=== PATIENT | female | born 1960 | race Caucasian/White ===

== ENCOUNTER 2021-05-23 16:23 | Emergency (ER) | payer BC, SELFPAY ==
--- NOTE | ~2021-05-23 | CT_ITS ---
EXAMINATION: CT ANGIOGRAM OF THE CHEST WITH AND WITHOUT CONTRAST (CT PULMONARY ANGIOGRAM FOR PE) CLINICAL INFORMATION: Reason for Exam r/o PE COMPARISON: None TECHNIQUE: Prior to contrast administration, noncontrast localization images were obtained. Subsequently, multidetector volumetric imaging was performed from the thoracic inlet to below the diaphragms following the administration of 57 mL Omnipaque 350 intravenous contrast. No contrast reaction reported Sagittal, coronal, and MIP oblique sagittal reformatted images were obtained on the CT workstation, uploaded to PACS, and reviewed. This CT examination was performed using dose optimization techniques as appropriate, variously including the following: *Automated exposure control *Adjustment of mA and/or kV according to patient size (this includes techniques or standardized protocols for targeted exams where dose is matched to indication/reason for exam; i.e. extremities or head) *Use of iterative reconstruction technique Total exam dose-length product 204 mGy-cm FINDINGS: QUALITY OF STUDY/CONTRAST BOLUS: Satisfactory. PULMONARY ARTERIES: No central or segmental pulmonary emboli. THORACIC AORTA: No aneurysm or dissection. LUNG: Dependent mosaic groundglass changes are present. Some are peripheral bullous formation present suggestive of underlying emphysema. No suspicious lung masses are seen. PLEURA: No pleural effusion or pneumothorax. MEDIASTINUM: Heart size upper limits normal. No pericardial effusion. No hilar or mediastinal lymphadenopathy. No evidence of septal bowing or right heart strain. CHEST WALL/AXILLA: No axillary or internal mammary lymphadenopathy. OSSEOUS STRUCTURES: No acute or suspicious osseous abnormality. UPPER ABDOMEN: Unremarkable. No reflux of contrast into the hepatic veins to suggest elevated right heart pressures. CT/CT angio chest PE protocol IMPRESSION: No evidence of pulmonary emboli Dependent mosaic groundglass change and some findings suggestive of underlying emphysema. VTE: negative
--- NOTE | ~2021-05-23 | XR_ITS ---
EXAMINATION: XR CHEST CLINICAL INFORMATION: Chest pain COMPARISON: 08/30/2010 TECHNIQUE: Frontal view of the chest was obtained. FINDINGS: No significant abnormality is noted involving the heart, lungs, mediastinum, bony thorax or soft tissues. XR/XR chest 1V IMPRESSION: Unremarkable examination.
[2021-05-23 16:34] VITALS: BMI 26.5
--- NOTE | 2021-05-23 16:35 | ECG_ITS ---
Test Reason : CHEST PAIN Blood Pressure : / mmHG Vent. Rate : 063 BPM Atrial Rate : 063 BPM P-R Int : 140 ms QRS Dur : 136 ms QT Int : 472 ms P-R-T Axes : 057 -02 030 degrees QTc Int : 483 ms Normal sinus rhythm Possible Left atrial enlargement Right bundle branch block Abnormal ECG When compared with ECG of 15-OCT-2008 13:10, Right bundle branch block has replaced Incomplete right bundle branch block Referred By: Generic ED Physician Electronically Signed By:BALDEV WHITEHEAD
[2021-05-23 18:56] VITALS: BP 155/67; PULSE 57; RESP 16; TEMP 36.6; O2SAT 99; BMI 26.5
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
[2021-05-23 19:25] LABS: Basophils Percent Auto 0.2 % (0-2); Eosinophils Absolute Auto 0.2 X10*3/uL (0.0-0.4); Eosinophils Percent Auto 2.5 % (0-4); Hematocrit 41.8 % (37-47); Hemoglobin 13.7 g/dl (12.0-16.0); Imm Gran Abs Auto 0.02 X10*3/uL (0.00-0.03); Imm Gran Pct Auto 0.3 % (0.0-0.4); Lymphocytes Absolute Auto 1.8 X10*3/uL (1.2-4.9); Lymphocytes Percent Auto 28.9 % (20-40); MANUAL DIFF FLAG NO; Mean Corpuscular HGB Conc 32.8 g/dl (31.0-35.0); Mean Corpuscular Hemoglobin 29.5 pg (27.0-33.0); Mean Corpuscular Volume 90.1 fL (80-98); Monocytes Absolute Auto 0.4 X10*3/uL (0.1-1.2); Monocytes Percent Auto 6.8 % (2-11); Neutrophils Absolute Auto 3.9 X10*3/uL (2.0-8.3); Neutrophils Percent Auto 61.3 % (45-73); Platelet Count 191 X10*3/uL (160-400); Red Blood Count 4.64 X10*6/uL (4.20-5.50); Red Cell Distribution Width 12.8 % (11.0-16.0); White Blood Count 6.3 X10*3/uL (4.8-10.8)
[2021-05-23 19:31] LABS: INTERNATIONAL NORM RATIO 0.9 (0.9-1.1); Prothrombin Time 10.7 SEC (9.9-13.0)
[2021-05-23 19:34] LABS: Partial Thromboplastin Time 41.4 SEC (24.1-38.0)
[2021-05-23 19:46] LABS: Anion Gap 12 (12-20); Blood Urea Nitrogen 16 mg/dL (9-16); Calcium 9.3 mg/dL (8.4-10.2); Carbon Dioxide 26 mmol/L (22-29); Chloride 109 mmol/L (96-108); Creatinine Clr Calc Pharmacy 60.9; Estimated Glomerular Filt Rate > 60; Glucose Random 94 mg/dL (60-115); Potassium 3.7 mmol/L (3.3-5.1); Sodium 143 mmol/L (135-145)
[2021-05-23 19:51] LABS: B Type Natriuretic Peptide 17 pg/mL (<100); Troponin-I High Sensitivity < 3.5 ng/L (<3.5-17.0)
--- NOTE | 2021-05-23 21:34 | ED_ITS ---
HPI - Chest Pain General Chief Complaint: Chest Pain Stated Complaint: cp Time Seen by Provider: 05/23/21 17:33 Source: patient Mode of arrival: ambulatory Limitations: no limitations Related Data Allergies Allergy/AdvReac Type Severity Reaction Status Date / Time No Known Allergies Allergy Verified 05/23/21 19:00 [No Known Allergies*] FOR[facility]LY [facility] Past Medical History Medical History (Updated 05/23/21 @ 18:59 by Fern Thomson RN) Major depression Social History Social History Advance Directives: No Advance Directives Information Provided: Yes Physical Exam Vital Signs: Vital Signs: Last Vital Signs Temp 97.9 F 05/23/21 18:56 Pulse 57 05/23/21 18:56 Resp 16 05/23/21 18:56 BP 155/67 H 05/23/21 18:56 Pulse Ox 99 05/23/21 18:56 Body Mass Index 26.5 MDM - Chest Pain Medical Records Data Attestation: I reviewed the patient's medical records. Lab Data Attestation: I reviewed the patient's lab results. Result diagrams: 05/23/21 19:18 05/23/21 19:18 Labs: Lab Results 05/23/21 05/23/21 05/23/21 Range/Units 19:18 19:18 19:18 WBC 6.3 (4.8-10.8) X10*3/uL RBC 4.64 (4.20-5.50) X10*6/uL Hgb 13.7 (12.0-16.0) g/dl Hct 41.8 (37-47) % MCV 90.1 (80-98) fL MCH 29.5 (27.0-33.0) pg MCHC 32.8 (31.0-35.0) g/dl RDW 12.8 (11.0-16.0) % Plt Count 191 (160-400) X10*3/uL MPV 10.0 (9.4-12.3) fL Immature Gran % (Auto) 0.3 (0.0-0.4) % Neut % (Auto) 61.3 (45-73) % Lymph % (Auto) 28.9 (20-40) % [place] % (Auto) 6.8 (2-11) % Eos % (Auto) 2.5 (0-4) % Baso % (Auto) 0.2 (0-2) % Lymph # (Auto) 1.8 (1.2-4.9) X10*3/uL [place] # (Auto) 0.4 (0.1-1.2) X10*3/uL Eos # (Auto) 0.2 (0.0-0.4) X10*3/uL Baso # (Auto) 0.0 (0.0-0.2) X10*3/uL Abs Immat Gran (auto) 0.02 (0.00-0.03) X10*3/uL Absolute Neuts (auto) 3.9 (2.0-8.3) X10*3/uL Absolute Nucleated RBC 0.000 (0.0-0.012) X10*3/uL Nucleated RBC % (auto) 0.0 (0.0-0.2) /100WBC PT 10.7 (9.9-13.0) SEC INR 0.9 (0.9-1.1) APTT 41.4 H (24.1-38.0) SEC Sodium 143 (135-145) mmol/L Potassium 3.7 (3.3-5.1) mmol/L Chloride 109 H (96-108) mmol/L Carbon Dioxide 26 (22-29) mmol/L Anion Gap 12 (12-20) BUN 16 (9-16) mg/dL Creatinine 0.84 (0.5-1.4) mg/dL Estim Creat Clear Calc 60.9 Estimated GFR > 60 Random Glucose 94 (60-115) mg/dL Calcium 9.3 (8.4-10.2) mg/dL Troponin I High Sens (<3.5-17.0) ng/L B-Natriuretic Peptide (<100) pg/mL 05/23/21 Range/Units 19:18 WBC (4.8-10.8) X10*3/uL RBC (4.20-5.50) X10*6/uL Hgb (12.0-16.0) g/dl Hct (37-47) % MCV (80-98) fL MCH (27.0-33.0) pg MCHC (31.0-35.0) g/dl RDW (11.0-16.0) % Plt Count (160-400) X10*3/uL MPV (9.4-12.3) fL Immature Gran % (Auto) (0.0-0.4) % Neut % (Auto) (45-73) % Lymph % (Auto) (20-40) % [place] % (Auto) (2-11) % Eos % (Auto) (0-4) % Baso % (Auto) (0-2) % Lymph # (Auto) (1.2-4.9) X10*3/uL [place] # (Auto) (0.1-1.2) X10*3/uL Eos # (Auto) (0.0-0.4) X10*3/uL Baso # (Auto) (0.0-0.2) X10*3/uL Abs Immat Gran (auto) (0.00-0.03) X10*3/uL Absolute Neuts (auto) (2.0-8.3) X10*3/uL Absolute Nucleated RBC (0.0-0.012) X10*3/uL Nucleated RBC % (auto) (0.0-0.2) /100WBC PT (9.9-13.0) SEC INR (0.9-1.1) APTT (24.1-38.0) SEC Sodium (135-145) mmol/L Potassium (3.3-5.1) mmol/L Chloride (96-108) mmol/L Carbon Dioxide (22-29) mmol/L Anion Gap (12-20) BUN (9-16) mg/dL Creatinine (0.5-1.4) mg/dL Estim Creat Clear Calc Estimated GFR Random Glucose (60-115) mg/dL Calcium (8.4-10.2) mg/dL Troponin I High Sens < 3.5 (<3.5-17.0) ng/L B-Natriuretic Peptide 17 (<100) pg/mL ECG Data ECG #1: Attestation: I personally reviewed and interpreted this ECG as follows: Interpretation: Now in sinus rhythm heart rate 63 beats per minute tried bladder branch block no acute ST T wave changes no acute ischemia
[2021-05-23 21:46] LABS: D Dimer 388 NG/ML
[2021-05-23] MEDS: Aspirin 81 MG TAB.CHEW 162 MG PO (22:02)
[2021-05-23] MEDS: iohexoL 350 MG/ML 100 ML INFUS..BTL IV (22:47)
[2021-05-23 22:54] LABS: Troponin-I High Sensitivity < 3.5 ng/L (<3.5-17.0)
== END 2021-05-24 00:02 | disposition home or self-care (01) ==
PROVIDERS: Internal Medicine; Physician Assistant; Emergency Provider Emergency Medicine
DX: R07.89 Other chest pain (principal)
CPT/HCPCS: 36415; 71045; 71275; 80048; 83880; 84484; 85025; 85379; 85610; 85730; 93005; 99283; 99284; Q9967

== ENCOUNTER 2021-07-11 07:09 | Outpatient (REF) | payer BC, SELFPAY ==
[2021-07-11 11:55] LABS: Appearance Urine CLEAR; Color Urine YELLOW; Glucose Urine UA NEG (NEG); Leukocyte Esterase Urine 2+ (NEG); Nitrite Urine NEG (NEG); Urine Blood NEG (NEG); Urine Ketones NEG (NEG); Urine Protein NEG (NEG-TRACE)
[2021-07-11 12:11] LABS: Bacteria Urine 1+ /LPF; RBC Urine 0-2 /HPF (0); Renal Epithelial Cells Urine 1+ /LPF; Squamous Epithelial Cell Urine 2+ /LPF
[2021-07-11 16:07] LABS: Cholesterol 266 mg/dL; HDL Cholesterol 63 mg/dL; LDL Cholesterol Calculated 185 mg/dl; Triglycerides 93 mg/dL
[2021-07-11 16:27] LABS: TSH reflex Free T4 1.58 uIU/mL (0.32-4.0)
== END 2021-07-11 07:10 | disposition home or self-care (01) ==
LOC: HO.WFDLDS 07:09
PROVIDERS: Visit Provider Family Medicine
DX: Z00.00 Encounter for general adult medical examination without abnormal findings (principal)
CPT/HCPCS: 36415; 80061; 81001; 84443

== ENCOUNTER → 2021-07-26 07:58 | Outpatient (REF) | payer BC, SELFPAY ==
--- NOTE | 2021-07-26 08:03 | CA_ITS ---
Acquisition Time: 2021-07-26 07:56:50 Total Exercise Time: 00:07:35 Test Indications: Abnormal ECG Medications: FLUOXETINE LITHIUM Protocol: ARELIS Max HR: 134 BPM 85% of Pred: 157 BPM Max BP: 162/058 mmHG Max Work Load: 9.4 METS Exercise stress test with exercise 7 min 35 sec of Arelis protocol, with mild sob, no chest discomfort, with isolated PVC in recovery, with normotensive response to exercise, without EKG changes meeting criteria for ischemia, with ST/T wave abnormality V1- V2 consistent with RBBB. Test reviewed with Dr Bruno Referred By: Homer Quintero Overread By: JULIAN BOATENG
== END ==
LOC: HO.CARD 07:58
PROVIDERS: Visit Provider Family Medicine
DX: R07.89 Other chest pain (principal)
CPT/HCPCS: 93017

== ENCOUNTER 2021-08-20 07:54 | Outpatient (REF) | payer BC, SELFPAY ==
--- NOTE | ~2021-08-20 | MM_ITS ---
EXAMINATION: MM SCREENING DIGITAL BREAST TOMOSYNTHESIS, BILATERAL CLINICAL INFORMATION: Screening. Asymptomatic. The lifetime risk of breast cancer based on the Tyrer-Cuzick Model is 4%. COMPARISON: Mammography: 01/09/2017, 04/13/2015 TECHNIQUE: Digital breast tomosynthesis is performed in both the craniocaudal and mediolateral oblique views along with computer-aided detection (CAD). Synthesized 2D images are generated from the tomosynthesis. FINDINGS: There are scattered areas of fibroglandular density (ACR BI-RADS breast composition Category b). There are no significant masses, abnormal calcifications, or other abnormalities. There are a few new scattered punctate round and ductal secretory calcifications mid central inner right breast. The axilla and skin contours are unremarkable. MM/MM tomosynthesis screening BI IMPRESSION: No mammographic evidence of malignancy. ASSESSMENT: BI-RADS 2: Benign RECOMMENDATION: Routine annual mammography screening. This patient's information was entered into a reminder system with a target due date for their next mammogram.
== END 2021-08-20 07:55 | disposition home or self-care (01) ==
LOC: HO.MAMMO 07:54
PROVIDERS: Visit Provider Family Medicine
DX: Z12.31 Encounter for screening mammogram for malignant neoplasm of breast (principal)
CPT/HCPCS: 77063; 77067

== ENCOUNTER 2021-11-21 07:07 | Outpatient (REF) | payer BC, SELFPAY ==
[2021-11-21 11:22] LABS: Appearance Urine CLEAR; Color Urine YELLOW; Glucose Urine UA NEG (NEG); Leukocyte Esterase Urine 1+ (NEG); Nitrite Urine NEG (NEG); PH 6.5 (5.0-8.0); Urine Blood NEG (NEG); Urine Ketones NEG (NEG); Urine Protein NEG (NEG-TRACE)
[2021-11-21 11:34] LABS: Cholesterol 262 mg/dL; HDL Cholesterol 63 mg/dL; LDL Cholesterol Calculated 177 mg/dl; Triglycerides 112 mg/dL
[2021-11-21 12:13] LABS: Lithium < 0.10 mmol/L (0.60-1.20)
[2021-11-21 13:12] LABS: Squamous Epithelial Cell Urine 1+ /LPF
[2021-11-21 13:14] LABS: RBC Urine 0 /HPF (0)
== END 2021-11-21 07:08 | disposition home or self-care (01) ==
LOC: HO.WFDLDS 07:07
PROVIDERS: Visit Provider Family Medicine
DX: Z00.00 Encounter for general adult medical examination without abnormal findings (principal); F32.9 Major depressive disorder, single episode, unspecified; Z79.899 Other long term (current) drug therapy
CPT/HCPCS: 36415; 80061; 80178; 81001

== ENCOUNTER 2021-12-21 13:19 | Outpatient (REF) | payer BC, SELFPAY ==
[2021-12-21 14:07] LABS: Influenza A PCR NEGATIVE (Negative); Influenza B PCR NEGATIVE (Negative); Resp Syncy Virus RNA Qual PCR NEGATIVE (Negative); SARS COV2 PCR INHOUSE NEGATIVE (Negative)
== END 2021-12-21 13:20 | disposition home or self-care (01) ==
LOC: HO.LNP 13:19
PROVIDERS: Visit Provider Family Medicine
DX: Z20.822 Contact with and (suspected) exposure to COVID-19 (principal)
CPT/HCPCS: 0241U

== ENCOUNTER 2022-02-13 11:23 | Outpatient (REF) | payer BC, SELFPAY | END 2022-02-13 11:24 | disposition home or self-care (01) | LOC: HO.LNP 11:23 | PROVIDERS: Visit Provider Family Medicine | DX: Z20.822 Contact with and (suspected) exposure to COVID-19 (principal); B34.9 Viral infection, unspecified | CPT/HCPCS: U0003; U0005 ==

== ENCOUNTER 2022-02-16 11:19 | Outpatient (REF) | payer BC, SELFPAY ==
--- NOTE | ~2022-02-16 | XR_ITS ---
EXAMINATION: XR CHEST CLINICAL INFORMATION: Cough. COMPARISON: None TECHNIQUE: 2 views of the chest were obtained. FINDINGS: The lungs are well-expanded and clear of acute process. The heart size and pulmonary vascularity is normal. There is mild dextroscoliosis lumbar spine. Rest of the visualized bones are grossly unremarkable. XR/XR chest 2V IMPRESSION: Unremarkable chest exam. Mild dextro scoliosis mid to lower dorsal spine.
[2022-02-16 14:41] LABS: Influenza A PCR NEGATIVE (Negative); Influenza B PCR NEGATIVE (Negative); Resp Syncy Virus RNA Qual PCR NEGATIVE (Negative); SARS COV2 PCR INHOUSE NEGATIVE (Negative)
== END 2022-02-16 11:20 | disposition home or self-care (01) ==
LOC: HO.XRAY 11:19
PROVIDERS: PCP Family Medicine; Visit Provider Family Medicine
DX: Z20.822 Contact with and (suspected) exposure to COVID-19 (principal); R05.9 Cough, unspecified
CPT/HCPCS: 0241U; 71046

== ENCOUNTER 2022-07-21 10:22 | Outpatient (REF) | payer BC, SELFPAY ==
[2022-07-21 16:48] LABS: Influenza A PCR NEGATIVE (Negative); Influenza B PCR NEGATIVE (Negative); Resp Syncy Virus RNA Qual PCR NEGATIVE (Negative); SARS COV2 PCR INHOUSE POSITIVE (Negative)
== END 2022-07-21 10:23 | disposition home or self-care (01) ==
LOC: HO.LAB 10:22
PROVIDERS: Visit Provider Nurse Practitioner Family
DX: R05.9 Cough, unspecified (principal); J39.9 Disease of upper respiratory tract, unspecified; Z20.822 Contact with and (suspected) exposure to COVID-19
CPT/HCPCS: 0241U; U0003; U0005

== ENCOUNTER 2022-09-02 07:59 | Outpatient (REF) | payer BC, SELFPAY ==
--- NOTE | ~2022-09-02 | MM_ITS ---
EXAMINATION: MM SCREENING DIGITAL BREAST TOMOSYNTHESIS, BILATERAL CLINICAL INFORMATION: Screening. Asymptomatic. The lifetime risk of breast cancer based on the Tyrer-Cuzick Model is 3%. COMPARISON: Mammography: 08/20/2021, 01/09/2017 TECHNIQUE: Digital breast tomosynthesis is performed in both the craniocaudal and mediolateral oblique views along with computer-aided detection (CAD). Synthesized 2D images are generated from the tomosynthesis. FINDINGS: There are scattered areas of fibroglandular density (ACR BI-RADS breast composition Category b). There are no significant masses, abnormal calcifications, or other abnormalities. Parenchymal pattern is similar to prior studies. There is no developing density or architectural abnormality. The axilla and skin contours are unremarkable. No significant changes. MM/MM tomosynthesis screening BI IMPRESSION: No mammographic evidence of malignancy. ASSESSMENT: BI-RADS 1: Negative RECOMMENDATION: Routine annual mammography screening. This patient's information was entered into a reminder system with a target due date for their next mammogram.
== END 2022-09-02 08:00 | disposition home or self-care (01) ==
LOC: HO.MAMMO 07:59
PROVIDERS: PCP Family Medicine; Visit Provider Family Medicine
DX: Z12.31 Encounter for screening mammogram for malignant neoplasm of breast (principal)
CPT/HCPCS: 77063; 77067

== ENCOUNTER 2022-10-03 10:27 | Outpatient (REF) | payer BC, SELFPAY ==
--- NOTE | ~2022-10-03 | US_ITS ---
EXAMINATION: US EXTRACRANIAL CAROTID DUPLEX, BILATERAL CLINICAL INFORMATION: Carotid stenosis COMPARISON: None TECHNIQUE: Real-time ultrasound and Doppler techniques (integrating B-mode 2-D vascular images, Doppler spectral analysis and color-flow Doppler imaging) were utilized to interrogate the extracranial carotid arteries, the vertebral arteries and proximal subclavian arteries bilaterally. The degree of stenosis is determined by criteria similar to NASCET. FINDINGS: Right Side: 1. There is mild atherosclerotic plaque seen in the bifurcation/proximal ICA region. 2. The common carotid artery PSV proximally is 77 cm/s and distally 71.4 cm/s. 3. The proximal internal carotid artery velocities are 72.4 cm/s systolic and 22.5 cm/s diastolic. 4. The proximal external carotid artery PSV is 113 cm/s. 5. The vertebral artery shows antegrade flow. 6. The subclavian artery waveforms are normal. Left Side: 1. There is no significant atherosclerotic plaque seen in the bifurcation/proximal ICA region. 2. The common carotid artery PSV proximally is 120 cm/s and distally 93.8 cm/s. 3. The proximal internal carotid artery velocities are 72.2 cm/s systolic and 22.1 cm/s diastolic. 4. The proximal external carotid artery PSV is 119 cm/s. 5. The vertebral artery shows antegrade flow. 6. The subclavian artery waveforms are normal. US/US carotid duplex BI IMPRESSION: 1. RIGHT: Minimal, non-hemodynamically significant stenosis of the proximal right internal carotid artery corresponding to a 0-49% stenosis by velocity criteria. 2. LEFT: Normal left internal carotid artery without atherosclerotic plaque or hemodynamically significant stenosis.
== END 2022-10-03 10:28 | disposition home or self-care (01) ==
LOC: HO.US 10:27
PROVIDERS: PCP Family Medicine; Visit Provider Family Medicine
DX: R09.89 Other specified symptoms and signs involving the circulatory and respiratory systems (principal)
CPT/HCPCS: 93880

== ENCOUNTER 2022-10-17 12:08 | Outpatient (REF) | payer BC, SELFPAY ==
[2022-10-17 14:01] LABS: MANUAL DIFF FLAG NO
[2022-10-17 14:12] LABS: Basophils Percent Auto 0.8 % (0-2); Eosinophils Absolute Auto 0.1 X10*3/uL (0.0-0.4); Eosinophils Percent Auto 1.8 % (0-4); Hematocrit 41.1 % (37.0-47.0); Hemoglobin 13.4 g/dl (12.0-16.0); Imm Gran Abs Auto 0.01 X10*3/uL (0.00-0.03); Imm Gran Pct Auto 0.2 % (0.0-0.4); Lymphocytes Absolute Auto 1.3 X10*3/uL (1.2-4.9); Lymphocytes Percent Auto 25.9 % (20-40); Mean Corpuscular HGB Conc 32.6 g/dl (31.0-35.0); Mean Corpuscular Hemoglobin 29.3 pg (27.0-33.0); Mean Corpuscular Volume 89.7 fL (80.0-98.0); Mean Platelet Volume 10.2 fL (9.4-12.3); Monocytes Absolute Auto 0.4 X10*3/uL (0.1-1.2); Monocytes Percent Auto 7.6 % (2-11); Neutrophils Absolute Auto 3.2 x10*3/uL (2.0-8.3); Neutrophils Percent Auto 63.7 % (45-73); Platelet Count 249 X10*3/uL (160-400); Red Blood Count 4.58 X10*6/uL (4.20-5.50); Red Cell Distribution Width 12.8 % (11.0-16.0)
[2022-10-17 14:13] LABS: Appearance Urine Clear; Color Urine Yellow; Glucose Urine UA Negative (Negative); Leukocyte Esterase Urine Negative (Negative); Nitrite Urine Negative (Negative); Urine Blood Negative (Negative); Urine Ketones Negative (Negative); Urine Protein Negative (Neg-Trace)
[2022-10-17 15:18] LABS: Alanine Aminotransferase 14 U/L (0-31); Albumin Level 4.2 g/dL (3.5-5.0); Alkaline Phosphatase 67 U/L (39-117); Anion Gap 12 (12-20); Aspartate Amino Transferase 13 U/L (5-31); Bilirubin Total 0.5 mg/dL (0.0-1.0); Blood Urea Nitrogen 21 mg/dL (9-16); Calcium 8.9 mg/dL (8.4-10.2); Carbon Dioxide 26 mmol/L (22-29); Chloride 108 mmol/L (96-108); Cholesterol 261 mg/dL; Estimated Glomerular Filt Rate > 60; Glucose Fasting 95 mg/dL (60-99); HDL Cholesterol 70 mg/dL; LDL Cholesterol Calculated 174 mg/dl; Potassium 4.4 mmol/L (3.3-5.1); Sodium 142 mmol/L (135-145); Total Protein 6.7 g/dL (6.5-8.0); Triglycerides 85 mg/dL
[2022-10-17 15:33] LABS: Creatinine Urine 120.38 mg/dL; Microalbum/Creatinine Ratio Ur 4.9 ug/mg cr; TSH reflex Free T4 1.73 uIU/mL (0.32-4.0)
== END 2022-10-17 12:09 | disposition home or self-care (01) ==
LOC: HO.WFDLDS 12:08
PROVIDERS: Visit Provider Family Medicine
DX: Z00.00 Encounter for general adult medical examination without abnormal findings (principal); I10 Essential (primary) hypertension; Z13.220 Encounter for screening for lipoid disorders; Z13.29 Encounter for screening for other suspected endocrine disorder
CPT/HCPCS: 36415; 80053; 80061; 81003; 82043; 84443; 85025

== ENCOUNTER 2023-09-08 07:59 | Outpatient (REF) | payer BC, SELFPAY | END 2023-09-08 08:00 | disposition home or self-care (01) | LOC: HO.MAMMO 07:59 | PROVIDERS: PCP Family Medicine; Visit Provider Family Medicine | DX: Z12.31 Encounter for screening mammogram for malignant neoplasm of breast (principal) | CPT/HCPCS: 77063; 77067 ==

== ENCOUNTER → 2023-09-08 08:00 | Outpatient (BNV) | payer BC, SELFPAY | PROVIDERS: PCP Family Medicine; Visit Provider Radiology Diagnostic Radiology | DX: Z12.31 Encounter for screening mammogram for malignant neoplasm of breast (principal) | CPT/HCPCS: 77063; 77067 ==

== ENCOUNTER 2024-02-22 10:52 | Outpatient (AMB) | payer BC, SELFPAY ==
[2024-02-22 10:58] VITALS: BP 122/72; PULSE 69; O2SAT 97; BMI 27.6
--- NOTE | 2024-02-22 10:58 | A.OFFPC_ITS ---
Vital Signs 02/22/24 10:58 Height 5 ft 2 in Weight 151 lb 2 oz BMI 27.6 BP 122/72 Blood Pressure Location Lt brachial Position Sitting Pulse 69 Pulse Source Pulse Oximeter Pulse Oximetry (%) 97 Oxygen Delivery Method Room Air Intake Visit Reasons: [place] Paperwork Intake Note: Patient is here with total exhaustion, crying, tired, and wiped out. Patient would like a [place] refill today, and Fluoxetine 10 mg. Allergies No Known Allergies [No Known Allergies*] Allergy (Verified 02/22/24 11:02) Tobacco use date assessed: 02/22/24 Fall risk assessment: No Falls in past year Last assessed Fall Risk: 02/22/24 Dental Screening Dental Screen Date: 02/22/24 Did you have a dental visit in the last 12 months?: Yes Did you have a dental problem in the last 6 months where you did not have access to dental care?: No Was dental information given to patient?: Patient has dentist HPI FMMS Paperwork HPI Details 63 y/o female presents for [facility] mariahcassius gold PHQ-9 18, LAKESHA-7 18 today. She is prescribed luoxetine, lithium carbonate. She states she has not been on her lithium for her major depression and has not been taking it x1 year. Denies any bipolar disorder. Pt reports she has been working 60+ hours a week which has been causing her significant stress, fatigue. She states her work hours have been worsening her anxiety/depression. [facility] Medical History Major depression Surgical History No pertinent past surgical history Social History Housing: Apartment Patient Tobacco Use Status: Never used Tobacco e-Cigarette/Vaping Use: Never Used Second Hand Smoke Exposure: No service: No Current occupational status: employed Current occupational exposures/hazards: No Cognitive needs: No Hearing needs: No Vision needs: No Questionnaire PHQ-9 Over the last 2 weeks, how often have you been bothered by any of the following problems? 1. Little interest or pleasure in doing things: nearly every day 2. Feeling down, depressed, or hopeless: not at all 3. Trouble falling or staying asleep, or sleeping too much: nearly every day 4. Feeling tired or having little energy: nearly every day 5. Poor appetite or overeating: nearly every day 6. Feeling bad about yourself - or that you are a failure or have let yourself or your family down: nearly every day 7. Trouble concentrating on things, such as reading the newspaper or watching television: nearly every day 8. Moving or speaking so slowly that other people could have noticed. Or the opposite - being so fidgety or restless that you have been moving around a lot more than usual: not at all 9. Thoughts that you would be better off or of hurting yourself in some way: not at all Total score: 18 Depression Screening Interpretation: Positive Depression Screening Done: Yes 24753 - PHQ-9 Billing: Yes Source: Developed by Drs. Rosalio Evans, Koki Hassan, Jg Guerra and colleagues, with an educational shweta from [employer]. Thrive Questionnaire Date Thrive assessed: 02/22/24 I am a: Patient What is your living situation today?: I have a steady place to live Within the past 12 months, did the food you bought not last and you didn't have the money to get more?: Never true Within the past 12 months, did you worry whether your food would run out before you got money to buy more?: Never true Do you have trouble paying for medicines?: No Do you have trouble getting transportation to medical appointments?: No Do you have trouble paying your heating and electricity bill?: No Do you have trouble taking care of your child, family member or friend?: No Do you have trouble with day-to-day activities such as bathing, preparing meals, shopping, managing finances, etc.?: No Are you currently unemployed and looking for a job?: No Are you interested in more education?: No THRIVE Score: 0 AUDIT C Alcohol Use Questionnaire (AUDIT-C) 1. How often do you have a drink containing alcohol?: 2-4 times a month 2. How many drinks containing alcohol do you have on a typical day when you are drinking?: 1 or 2 3. How often do you have six or more drinks on one occasion?: Never Total Score: 2 LAKESHA-7 AMB Questionnaire LAKESHA-7 Date LAKESHA - 7 assessed: 02/22/24 Feeling nervous, anxious, or on edge: 3 = Nearly every day Not being able to stop or control worryin = Nearly every day Worrying too much about different things: 3 = Nearly every day Trouble relaxin = Nearly every day Being so restless that it is hard to sit still: 3 = Nearly every day Becoming easily annoyed or irritable: 3 = Nearly every day Feeling afraid as if something awful might happen: 0 = Not at all Total LAKESHA-7 score (0-4 normal; 5-9 mild; 10-14 moderate; 15-21 severe): 18 Source: Developed by Drs. Rosalio Evans, Koki Hassan, Jg Guerar and colleagues, with an educational shweta from [employer]. LAKESHA-7 Assessment Billing LAKESHA-7 Assessment Tool: LAKESHA-7 Assessment 61195 Review of Systems Const Denies chills, Reports fatigue, Denies fever(s), Denies headache(s) and Denies weakness ENT Denies dizziness and Denies headache(s) Card Denies dyspnea Resp Denies cough, Denies dyspnea, Denies wheezing and Denies other (shortness of breath) Musc Denies numbness and Denies tingling Neuro Denies dizziness, Denies headache(s), Denies numbness, Denies tingling and Denies weakness Psych Reports anxiety and Reports depression Endo Reports fatigue Aller/Immun Denies wheezing Physical exam (Primary Care) Vital Signs: Last Vital Signs Pulse 69 02/22/24 10:58 BP 122/72 02/22/24 10:58 Pulse Ox 97 02/22/24 10:58 Oxygen Delivery Method Room Air 02/22/24 10:58 BMI result Body Mass Index 27.6 Tobacco/Smoking Status: Tobacco use Status Tobacco use date assessed 02/22/24 02/22/24 11:08 Patient Tobacco Use Status Never used Tobacco 02/22/24 11:08 e-Cigarette/Vaping Use Never Used 02/22/24 11:08 PHQ-9: PHQ-9 Score PHQ-9: Total score 18 02/22/24 11:36 Depression Screening Interpretation: Positive Thrive Assessment: Date of Thrive Assessment Date Thrive assessed 02/22/24 02/22/24 11:16 Const General: well developed; No acute distress Nutritional Appearance: well nourished Orientation/consciousness: patient oriented x3 [facility] Head: Yes normocephalic and Yes atraumatic Eyes General: appearance normal, both eyes and all related structures Pupils: Equal, round and reactive pupils present EOM: EOMs intact bilaterally Resp Effort & Inspection: normal respiratory effort Auscultation: clear to auscultation bilaterally Cardio Rate: regular rate Rhythm: regular rhythm Heart sounds: S1 normal heart sound present, S2 normal heart sound present, no gallops, no murmurs and no rubs Neuro General: patient oriented x3 and gait normal Cranial nerves: Yes Equal, round and reactive pupils present Psych Affect: normal affect Assessment and Plan Assessment & Plan (1) Major depression: Code(s): F32.9 - Major depressive disorder, single episode, unspecified Plan: Major?depression?for?which?pat ient?has?had?Psychiatry?and?has?been?on?high?doses?of?fluoxetine?and?lithium.??S he?denies?a?diagnosis?of?bipolar?disorder. She?has?been?on?fluoxetine?but?has?not?been?on?the?lithium?which?she?says?was ?also?helpful. Will?continue?her?regimen?and?will?add?some?bupropion?which?may?also?help?with?h er?anxiety?which?seems?to?be?exacerbated?due?to?work?at?present. Severe?fatigue?and?avoiding?behavior?at?work Advised?patient?that?she?needs?therapist?and?psychiatrist?as?well?and?she?agrees .??Will?ask?the?nurse?navigator?to?help?her?with?this Severe?symptoms?at?work?and?I?am?keeping?her?out?for?the?n ext?2?months?for?her?mental?health?and?to?ensure?she?is?connected?with?a?therapi st?and?a?psychiatrist.??Will?follow-up?in?2?weeks?to?review?her?labs?and?see?how ?her?medications?are?working.??Close?follow- up?thereafter?and?will?fill?out?FMLA?paperwork?at?her?next?visit. (2) Depression with anxiety: Code(s): F41.8 - Other specified anxiety disorders Plan: As?above,?patient?seems?to?have?anxiety?as?well?as?depression?and?may?benefit?fr om?an?adjunct?medication?such?as?bupropion?along?with ?her?fluoxetine?and?lithium. (3) Fatigue: Code(s): R53.83 - Other fatigue Plan: May?be?se condary?to?worsened?anxiety?and?depression.??However,?this?may?be?symptoms?sleep ?apnea?as?patient?has?severe?daytime?fatigue?and?also?awakens?frequently?through out?the?night. Referred?to?Sleep?Medicine Checking?labs Orders: Orders Comprehensive [place]. Panel Fast Today Z00.00 - Encounter for general adult medical examination without abnormal findings Complete Blood Count Auto Diff Today Z00.00 - Encounter for general adult medical examination without abnormal findings Vitamin D 25-OH Total Today E55.9 - Vitamin D deficiency, unspecified Lipid Panel Today Z00.00 - Encounter for general adult medical examination without abnormal findings Microalbumin, Random (w Creat) Today I10 - Essential (primary) hypertension TSH reflex Free T4 Today Z00.00 - Encounter for general adult medical examination without abnormal findings UA and rflx microscopic Today Z00.00 - Encounter for general adult medical examination without abnormal findings Vitamin B12 and Folate Today E53.8 - Deficiency of other specified B group vitamins [place] Today F41.8 - Other specified anxiety disorders Referrals Nurse Navigator Referral F41.8 - Other specified anxiety disorders Sleep Medicine Referral G47.10 - Hypersomnia, unspecified, R53.83 - Other fatigue Medications: New bupropion HCl 75 mg PO BID 30 days 60 tabs 1RF Refilled lithium carbonate Covering script for psychiatrist. 300 mg PO BID 90 days 180 tabs 1RF fluoxetine Covering script for psychiatrist. Total daily dose is 90 mg. 10 mg PO DAILY 90 days 90 caps 1RF Coding Level of Care Code Est Pt Level 3 (10658) Diagnoses Major depression F32.9 Depression with anxiety F41.8 Fatigue R53.83 Additional Codes LAKESHA-7 Assessment Billing - LAKESHA-7 Assessment Tool: LAKESHA-7 Assessment 73134 ([id number])
== END 2024-02-22 11:50 | disposition home or self-care (01) ==
PROVIDERS: PCP Family Medicine; Visit Provider Family Medicine
DX: R53.83 Other fatigue (principal); F32.9 Major depressive disorder, single episode, unspecified; F41.8 Other specified anxiety disorders
CPT/HCPCS: 96127; 99214

== ENCOUNTER 2024-03-03 07:43 | Outpatient (REF) | payer BC, SELFPAY ==
[2024-03-03 11:13] LABS: MANUAL DIFF FLAG NO
[2024-03-03 11:44] LABS: Basophils Percent Auto 0.5 % (0-2); Eosinophils Absolute Auto 0.1 X10*3/uL (0.0-0.4); Eosinophils Percent Auto 3.6 % (0-4); Hematocrit 40.9 % (37.0-47.0); Hemoglobin 13.3 g/dl (12.0-16.0); Imm Gran Abs Auto 0.01 X10*3/uL (0.00-0.03); Imm Gran Pct Auto 0.3 % (0.0-0.4); Lymphocytes Percent Auto 27.1 % (20-40); Mean Corpuscular HGB Conc 32.5 g/dl (31.0-35.0); Mean Corpuscular Hemoglobin 29.6 pg (27.0-33.0); Mean Corpuscular Volume 90.9 fL (80.0-98.0); Mean Platelet Volume 10.6 fL (9.4-12.3); Monocytes Absolute Auto 0.3 X10*3/uL (0.1-1.2); Monocytes Percent Auto 7.6 % (2-11); Neutrophils Absolute Auto 2.3 x10*3/uL (2.0-8.3); Neutrophils Percent Auto 60.9 % (45-73); Platelet Count 183 X10*3/uL (160-400); Red Cell Distribution Width 13.3 % (11.0-16.0); White Blood Count 3.8 X10*3/uL (4.8-10.8)
[2024-03-03 11:48] LABS: Appearance Urine Clear; Color Urine Yellow; Glucose Urine UA Negative (Negative); Leukocyte Esterase Urine Trace (Negative); Nitrite Urine Negative (Negative); Specific Gravity - Urine 1.015 (1.005-1.025); UMIC TRIGGER UA YES; Urine Blood Negative (Negative); Urine Ketones Negative (Negative); Urine Protein Negative (Neg-Trace)
[2024-03-03 11:56] LABS: Bacteria Urine None Seen (None Seen); Hyaline Casts Urine 0-2 /LPF (0-2); RBC Urine 0-2 /HPF (0-2); Squamous Epithelial Cell Urine 0-2 /HPF (0-2); WBC Urine 0-5 /HPF (0-5)
[2024-03-03 12:15] LABS: Lithium < 0.10 mmol/L (0.60-1.20)
[2024-03-03 12:17] LABS: Alanine Aminotransferase 13 U/L (0-31); Alkaline Phosphatase 69 U/L (39-117); Anion Gap 10 (12-20); Aspartate Amino Transferase 14 U/L (5-31); Bilirubin Total 0.4 mg/dL (0.0-1.0); Blood Urea Nitrogen 18 mg/dL (9-16); Calcium 8.9 mg/dL (8.4-10.2); Carbon Dioxide 27 mmol/L (22-29); Chloride 108 mmol/L (96-108); Cholesterol 196 mg/dL (<200); Estimated Glomerular Filt Rate > 60; Glucose Fasting 95 mg/dL (60-99); HDL Cholesterol 73 mg/dL (>40); LDL Cholesterol Calculated 111 mg/dL (<100); Potassium 4.2 mmol/L (3.3-5.1); Sodium 141 mmol/L (135-145); Total Protein 6.7 g/dL (6.5-8.0); Triglycerides 60 mg/dL (<150)
[2024-03-03 12:20] LABS: Creatinine Urine 66.32 mg/dL; Microalbumin Urine < 5.0 mg/L
[2024-03-03 12:38] LABS: TSH reflex Free T4 1.65 uIU/mL (0.32-4.0); Vitamin D 25-OH Total 28.2 ng/mL (>30)
[2024-03-03 12:39] LABS: Folate 9.6 ng/mL (> or = 4.0); Vitamin B12 260 pg/mL (200-900)
== END 2024-03-03 07:44 | disposition home or self-care (01) ==
LOC: HO.WFDLDS 07:43
PROVIDERS: Visit Provider Family Medicine
DX: Z00.00 Encounter for general adult medical examination without abnormal findings (principal); I10 Essential (primary) hypertension; E53.8 Deficiency of other specified B group vitamins; E55.9 Vitamin D deficiency, unspecified; F41.8 Other specified anxiety disorders
CPT/HCPCS: 36415; 80053; 80061; 80178; 81001; 82043; 82306; 82570; 82607; 82746; 84443; 85025

== ENCOUNTER 2024-03-12 12:38 | Outpatient (AMB) | payer BC, SELFPAY ==
--- NOTE | 2024-03-12 12:39 | MHC.OFFVIS ---
Vital Signs 03/12/24 12:40 Height 5 ft 2 in Weight 151 lb 2 oz BMI 27.6 BP 102/62 Blood Pressure Location Rt brachial Position Sitting Respiration 16 Pulse 60 Pulse Source Pulse Oximeter Pulse Oximetry (%) 100 Oxygen Delivery Method Room Air Intake Visit Reasons: INP: Hypersomnia/Other Fatigue - LVM w/add Intake Note: Pt presents to the office for new pt evaluation for hypersomnia and day time fatigue. Hop Weigher Required: No Allergies No Known Allergies [No Known Allergies*] Allergy (Verified 03/12/24 12:40) Medication List - Last Reconciled 03/12/24 by Roz Jordan MD albuterol sulfate 90 mcg/actuation (ProAir HFA) 2 puffs inhalation Q4-6H PRN 30 days atorvastatin 20 mg PO BEDTIME 30 days bupropion HCl 75 mg PO BID 30 days fluoxetine 80 mg (2 x 40 mg) PO DAILY 90 days fluoxetine 10 mg PO DAILY 90 days lithium carbonate 300 mg PO BID 90 days HPI Comments Details: 63y/o female comes for sleep evaluation . Main complaints-Hyperosmnia , snoring , frequent arousals Sleep questionnaire- Difficulty falling asleep-no Difficulty staying asleep-yes Number of [id number] Snoring-yes Witnessed apneas-/no Gasping arousals-no Nocturia-no GERD-no Vivid dreams-yes Acting out dreams -no Abnormal behavior in sleep-no ABnormal movements in sleep-no Morning headaches-no Excessive daytime sleepiness-yes Daytime naps- yes restless legs- no Hallucinations- no sleep paralysis- no Drop attacks- yes/no Sleep study-no Sleep Hygiene- Sleep time- 9-10pm Wake time - 5am coffee/stimulant use- am Phone Electronics use- none Exercise- walking Bedroom comfort- good [facility] Medical History (Updated 03/12/24 @ 13:02 by Roz Jordan MD) Insomnia Snoring Major depression Surgical History No pertinent past surgical history Social History Housing: Apartment Patient Tobacco Use Status: Never used Tobacco e-Cigarette/Vaping Use: Never Used Second Hand Smoke Exposure: No service: No Current occupational status: employed Current occupational exposures/hazards: No Cognitive needs: No Hearing needs: No Vision needs: No Physical Exam Const General: cooperative, healthy appearing and comfortable Nutritional Appearance: average body habitus Orientation/consciousness: patient oriented x3 Neck Neck: Yes no meningeal signs Neuro Other: mallampatti grade 4 General: patient oriented x3, gait normal, tone normal, moves all extremities, no meningeal signs and no focal motor deficits Cranial nerves: Yes Symmetric palate elevation present Cognition (Neuro): normal cognition Motor exam (neuro): 5/5 motor strength present throughout and Normal motor muscle tone present throughout Deep tendon reflexes (DTR's): Right triceps reflex intensity grade: 3+, Left triceps reflex intensity grade: 3+, Rt Biceps (C5, C6): 3+, Left biceps reflex intensity grade: 3+, Right brachioradialis reflex intensity grade: 3+, Left brachioradialis reflex intensity grade: 3+, Right patellar reflex intensity grade: 3+ and Left patellar reflex intensity grade: 3+ Coordination: [id number] test normal Assessment & Plan Assessment & Plan (1) Hypersomnia: Code(s): G47.10 - Hypersomnia, unspecified Category: Medical (2) Snoring: Code(s): R06.83 - Snoring Category: Medical (3) Insomnia: Code(s): G47.00 - Insomnia, unspecified Category: Medical Plan Home sleep test = to r/o sleep apnea Vit D was 28 - i will start her Vit D 81938 q weekly for 3 mths F/u psychiatry Medications: New cholecalciferol (vitamin D3) 1,250 mcg PO QWEEK 14 caps 0RF Coding Level of Care Code New Pt Level 4 (97359) Diagnoses Hypersomnia G47.10 Snoring R06.83 Insomnia G47.00 [place] Sleepiness Scale Questions Sitting and reading: slight chance of dozing Watching TV: high chance of dozing Sitting inactive in a theater, movie etc.: high chance of dozing As a passenger in a car for an hour without break: high chance of dozing Lying down in the afternoon when circumstances permit: high chance of dozing Sitting and talking to someone: would never doze Sitting quietly after lunch without alcohol: slight chance of dozing In a car, while stopped for a few minutes in the traffic: would never doze ESS < 10: normal, ESS > 12: pathologic: 14
[2024-03-12 12:40] VITALS: BP 102/62; PULSE 60; RESP 16; O2SAT 100; BMI 27.6
== END 2024-03-12 13:11 | disposition home or self-care (01) ==
PROVIDERS: PCP Family Medicine; Visit Provider Psychiatry & Neurology Neurology
DX: G47.10 Hypersomnia, unspecified (principal); R06.83 Snoring; G47.00 Insomnia, unspecified
CPT/HCPCS: 99204

== ENCOUNTER → 2024-03-12 12:38 | Outpatient (BNVA) | payer BC, SELFPAY | PROVIDERS: PCP Family Medicine; Visit Provider Psychiatry & Neurology Neurology ==

== ENCOUNTER 2024-03-14 09:42 | Outpatient (AMB) | payer BC, SELFPAY ==
--- NOTE | 2024-03-14 09:45 | A.OFFPC_ITS ---
Vital Signs 03/14/24 09:48 Height 5 ft 2 in Weight 152 lb BMI 27.8 BP 122/72 Blood Pressure Location Lt brachial Position Sitting Pulse 62 Pulse Source Pulse Oximeter Pulse Oximetry (%) 98 Oxygen Delivery Method Room Air Intake Visit Reasons: f/u anxiety/depression, labs Intake Note: Patient is here for follow up on anxiety/depression and would like her paperwork done. Allergies No Known Allergies [No Known Allergies*] Allergy (Verified 03/14/24 09:51) Tobacco use date assessed: 03/14/24 Fall risk assessment: No Falls in past year Last assessed Fall Risk: 03/14/24 Dental Screening Dental Screen Date: 02/22/24 HPI f/u anxiety/depression, labs HPI Details 63 y/o female presents to f/u anxiety/de pression and labs for fatigue. Labs were drawn 03/03/24. Reviewed labs with pt. Vitamin D mildly low at 28.2. Triglycerides 60. TC 196. LDL 111. HDL 73. PHQ-9 19, LAKESHA-7 17 today. PFSH Medical History (Updated 03/12/24 @ 13:02 by Roz Jordan MD) Insomnia Snoring Major depression Surgical History No pertinent past surgical history Social History Housing: Apartment Patient Tobacco Use Status: Never used Tobacco e-Cigarette/Vaping Use: Never Used Second Hand Smoke Exposure: No service: No Current occupational status: employed Current occupational exposures/hazards: No Cognitive needs: No Hearing needs: No Vision needs: No Questionnaire PHQ-9 Over the last 2 weeks, how often have you been bothered by any of the following problems? 1. Little interest or pleasure in doing things: more than half the days 2. Feeling down, depressed, or hopeless: more than half the days 3. Trouble falling or staying asleep, or sleeping too much: nearly every day 4. Feeling tired or having little energy: nearly every day 5. Poor appetite or overeating: nearly every day 6. Feeling bad about yourself - or that you are a failure or have let yourself or your family down: more than half the days 7. Trouble concentrating on things, such as reading the newspaper or watching television: more than half the days 8. Moving or speaking so slowly that other people could have noticed. Or the opposite - being so fidgety or restless that you have been moving around a lot more than usual: more than half the days 9. Thoughts that you would be better off or of hurting yourself in some way: not at all Total score: 19 Depression Screening Interpretation: Positive Depression Screening Done: Yes Source: Developed by Drs. Rosalio Evans, Jg Jones and colleagues, with an educational shweta from [employer]. Thrive Questionnaire Date Thrive assessed: 02/22/24 LAKESHA-7 AMB Questionnaire LAKESHA-7 Date LAKESHA - 7 assessed: 03/14/24 Feeling nervous, anxious, or on edge: 3 = Nearly every day Not being able to stop or control worryin = More than half the days Worrying too much about different things: 2 = More than half the days Trouble relaxin = Nearly every day Being so restless that it is hard to sit still: 2 = More than half the days Becoming easily annoyed or irritable: 3 = Nearly every day Feeling afraid as if something awful might happen: 2 = More than half the days Total LAKESHA-7 score (0-4 normal; 5-9 mild; 10-14 moderate; 15-21 severe): 17 Source: Developed by Drs. Rosalio Evans, Jg Jones and colleagues, with an educational shweta from [employer]. Review of Systems Const Denies chills, Denies fatigue, Denies fever(s), Denies headache(s) and Denies weakness ENT Denies dizziness and Denies headache(s) Card Denies dyspnea Resp Denies cough, Denies dyspnea, Denies wheezing and Denies other (shortness of breath) Musc Denies numbness and Denies tingling Neuro Denies dizziness, Denies headache(s), Denies numbness, Denies tingling and Denies weakness Psych Reports anxiety and Reports depression Endo Denies fatigue Aller/Immun Denies wheezing Physical exam (Primary Care) Vital Signs: Last Vital Signs Pulse 62 03/14/24 09:48 BP 122/72 03/14/24 09:48 Pulse Ox 98 03/14/24 09:48 Oxygen Delivery Method Room Air 03/14/24 09:48 BMI result Body Mass Index 27.8 Tobacco/Smoking Status: Tobacco use Status Tobacco use date assessed 03/14/24 03/14/24 09:53 Patient Tobacco Use Status Never used Tobacco 03/14/24 09:46 e-Cigarette/Vaping Use Never Used 03/14/24 09:46 PHQ-9: PHQ-9 Score PHQ-9: Total score 19 03/14/24 10:33 Depression Screening Interpretation: Positive Thrive Assessment: Date of Thrive Assessment Date Thrive assessed 02/22/24 03/14/24 09:46 Const General: well developed; No acute distress Nutritional Appearance: well nourished Orientation/consciousness: patient oriented x3 HENMT Head: Yes normocephalic and Yes atraumatic Eyes General: appearance normal, both eyes and all related structures Pupils: Equal, round and reactive pupils present EOM: EOMs intact bilaterally Resp Effort & Inspection: normal respiratory effort Neuro General: patient oriented x3 and gait normal Cranial nerves: Yes Equal, round and reactive pupils present Psych Affect: normal affect Assessment and Plan Assessment & Plan (1) Depression with anxiety: Code(s): F41.8 - Other specified anxiety disorders Plan: Ongoing?severe?depression?and?anxiety. She?is?taking?fluoxetine?90?mg?daily She?had?been?on?lithium?for?severe?depression?as?w ell?and?denies?any?history?of?bipolar?disorder.??She?has?not?restarted?this?thou gh?we?had?sent?script Had?also?sent?a?script?for?bupropion?as?adjunct?medication?with?fluoxetine?but?s he?has?not?started?this?yet?either At?this?point,?recommending?that?she?start?bupropion?along?with?fluoxetine.??No? evidence?of?cyndie.??No?history?of?bipolar?disorder. She?will?hold?off?on?lithium?for?now Had?ask?the?n urse?navigator?to?help?her?get?a?therapist?and?she?has?been?waiting?for?call?donny k.??Will?discuss?with?the?nurse?navigator (2) Fatigue: Code(s): R53.83 - Other fatigue Plan: Patient?has?been?referred?for?a?sleep?study?by?sleep?medicine Workup?still?underway Lab?work?is?unremarkable Coding Level of Care Code Est Pt Level 3 (77849) Diagnoses Depression with anxiety F41.8 Fatigue R53.83
[2024-03-14 09:48] VITALS: BP 122/72; PULSE 62; O2SAT 98; BMI 27.8
== END 2024-03-14 11:03 | disposition home or self-care (01) ==
PROVIDERS: PCP Family Medicine; Visit Provider Family Medicine
DX: F41.8 Other specified anxiety disorders (principal); R53.83 Other fatigue
CPT/HCPCS: 99213

== ENCOUNTER → 2024-04-15 07:57 | Outpatient (REF) | payer BC, SELFPAY | LOC: HO.SL 07:57 | PROVIDERS: PCP Family Medicine; Visit Provider Psychiatry & Neurology Neurology | DX: G47.00 Insomnia, unspecified (principal); G47.10 Hypersomnia, unspecified; R06.83 Snoring | CPT/HCPCS: 95806 ==

== ENCOUNTER → 2024-04-15 08:07 | Outpatient (BNV) | payer BC, SELFPAY | PROVIDERS: PCP Family Medicine; Visit Provider Psychiatry & Neurology Neurology | DX: R06.83 Snoring (principal); G47.10 Hypersomnia, unspecified | CPT/HCPCS: 95806 ==

== ENCOUNTER 2024-04-18 10:32 | Outpatient (AMB) | payer BC, SELFPAY ==
[2024-04-18 10:35] VITALS: BP 118/62; PULSE 61; RESP 15; TEMP 36.4; O2SAT 98; BMI 27.8
--- NOTE | 2024-04-18 10:35 | A.OFFPC_ITS ---
Vital Signs 04/18/24 10:35 Height 5 ft 2 in Weight 152 lb 4 oz BMI 27.8 BP 118/62 Blood Pressure Location Rt brachial Position Sitting Respiration 15 Pulse 61 Pulse Source Pulse Oximeter Temp 97.6 F Temp Source Temporal Artery Scan Pulse Oximetry (%) 98 Oxygen Delivery Method Room Air Intake Visit Reasons: est/ follow absence from work Upper Cutter Out Required: No Accompanied by: Self / Same As Patient Allergies No Known Allergies [No Known Allergies*] Allergy (Verified 04/18/24 10:39) Medication List - Last Reconciled 04/18/24 by Homer Quintero MD albuterol sulfate 90 mcg/actuation (ProAir HFA) 2 puffs inhalation Q4-6H PRN 30 days atorvastatin 20 mg PO BEDTIME 30 days cholecalciferol (vitamin D3) 1,250 mcg PO QWEEK fluoxetine 80 mg (2 x 40 mg) PO DAILY 90 days fluoxetine 10 mg PO DAILY 90 days lithium carbonate 300 mg PO BID 90 days Tobacco use date assessed: 03/14/24 Fall risk assessment: 1 Fall in past year Last assessed Fall Risk: 04/18/24 Dental Screening Dental Screen Date: 02/22/24 HPI est/ follow absence from work HPI Details 63 y/o female presents to f/u depression /anxiety. Had ongoing severe depression and anxiety and is taking fluoxetine 90mg daily. Pt notes significant improvement on mood. PFSH Medical History Insomnia Snoring Major depression Surgical History No pertinent past surgical history Social History Housing: Apartment Patient Tobacco Use Status: Never used Tobacco e-Cigarette/Vaping Use: Never Used Second Hand Smoke Exposure: No service: No Current occupational status: employed Current occupational exposures/hazards: No Cognitive needs: No Hearing needs: No Vision needs: No Questionnaire Thrive Questionnaire Date Thrive assessed: 02/22/24 LAKESHA-7 AMB Questionnaire LAKESHA-7 Date LAKESHA - 7 assessed: 03/14/24 Source: Developed by Drs. Rosalio Evans, Koki Hassan, Jg Guerra and colleagues, with an educational shweta from [employer]. Review of Systems Const Denies chills, Denies fatigue, Denies fever(s), Denies headache(s) and Denies weakness ENT Denies dizziness and Denies headache(s) Card Denies dyspnea Resp Denies cough, Denies dyspnea, Denies wheezing and Denies other (shortness of breath) Musc Denies numbness and Denies tingling Neuro Denies dizziness, Denies headache(s), Denies numbness, Denies tingling and Denies weakness Psych Denies anxiety and Denies depression Endo Denies fatigue Aller/Immun Denies wheezing Physical exam (Primary Care) Vital Signs: Last Vital Signs Temp 97.6 F 04/18/24 10:35 Pulse 61 04/18/24 10:35 Resp 15 04/18/24 10:35 BP 118/62 04/18/24 10:35 Pulse Ox 98 04/18/24 10:35 Oxygen Delivery Method Room Air 04/18/24 10:35 BMI result Body Mass Index 27.8 Tobacco/Smoking Status: Tobacco use Status Tobacco use date assessed 03/14/24 04/18/24 10:40 Patient Tobacco Use Status Never used Tobacco 04/18/24 10:40 e-Cigarette/Vaping Use Never Used 04/18/24 10:40 Thrive Assessment: Date of Thrive Assessment Date Thrive assessed 02/22/24 04/18/24 10:40 Const General: well developed; No acute distress Nutritional Appearance: well nourished Orientation/consciousness: patient oriented x3 [facility] Head: Yes normocephalic and Yes atraumatic Eyes General: appearance normal, both eyes and all related structures Pupils: Equal, round and reactive pupils present EOM: EOMs intact bilaterally Resp Effort & Inspection: normal respiratory effort Neuro General: patient oriented x3 and gait normal Cranial nerves: Yes Equal, round and reactive pupils present Psych Affect: normal affect Assessment and Plan Assessment & Plan (1) Depression with anxiety: Code(s): F41.8 - Other specified anxiety disorders Plan: Follow-up?for?depression?and?anxiety? with?patient?out?of?work?on?FMLA?leave?due?to?severe?symptoms. Patient?notes?significant?improvement?and?now?has?a?therapist.??Therapist?is?wor jessie?on?getting?her?a?psychiatrist?as?well. Has?not?start ed?the?bupropion?because?she?has?noticed?improvement?and?because?she?is?expectin g?a?psychiatrist?to?start?managing?medications?soon. At?this?point?I?think?patient?would?be?on?target?for?her?March? ?return?to?work, however?she?will?not?likely?be?able?to?get?back?to?work?that?soon?due?to?recent? left?wrist?fracture. 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 Orders: Orders Complete Blood Count Auto Diff Today Z00.00 - Encounter for general adult medical examination without abnormal findings Lipid Panel Today Z00.00 - Encounter for general adult medical examination without abnormal findings UA and rflx microscopic Today Z00.00 - Encounter for general adult medical examination without abnormal findings Vitamin B12 and Folate Today E53.8 - Deficiency of other specified B group vitamins Comprehensive [place]. Panel Fast Today Z00.00 - Encounter for general adult medical examination without abnormal findings Microalbumin, Random (w Creat) Today I10 - Essential (primary) hypertension TSH reflex Free T4 Today Z00.00 - Encounter for general adult medical examination without abnormal findings Vitamin D 25-OH Total Today E55.9 - Vitamin D deficiency, unspecified Medications: Discontinued bupropion HCl Discontinued Reason: Doctor's Order 75 mg PO BID 30 days 60 tabs 1RF Coding Level of Care Code Est Pt Level 3 (57737) Diagnoses Depression with anxiety F41.8 Left wrist fracture S62.102A
== END 2024-04-18 12:51 | disposition home or self-care (01) ==
PROVIDERS: PCP Family Medicine; Visit Provider Family Medicine
DX: F41.8 Other specified anxiety disorders (principal); S62.102A Fracture of unspecified carpal bone, left wrist, initial encounter for closed fracture
CPT/HCPCS: 99213

== ENCOUNTER 2024-06-09 08:53 | Outpatient (AMB) | payer BC, SELFPAY ==
--- NOTE | 2024-06-09 08:57 | A.OFFPC_ITS ---
Vital Signs 06/09/24 09:00 Height 5 ft 2 in Weight 156 lb 8 oz BMI 28.6 BP 118/68 Blood Pressure Location Rt brachial Position Sitting Respiration 14 Pulse 68 Pulse Source Pulse Oximeter Pulse Oximetry (%) 97 Oxygen Delivery Method Room Air Intake Visit Reasons: CPE with f/u labs and health maint. Intake Note: follow up Allergies No Known Allergies [No Known Allergies*] Allergy (Verified 06/09/24 08:59) Medication List - Last Reconciled 06/09/24 by Shoshana Gomez, [facility]- albuterol sulfate 90 mcg/actuation (ProAir HFA) 2 puffs inhalation Q4-6H PRN 30 days atorvastatin 20 mg PO BEDTIME 30 days cholecalciferol (vitamin D3) 1,250 mcg PO QWEEK fluoxetine 80 mg (2 x 40 mg) PO DAILY 90 days fluoxetine 10 mg PO DAILY 90 days lithium carbonate 300 mg PO BID 90 days Tobacco use date assessed: 03/14/24 Dental Screening Dental Screen Date: 02/22/24 HPI HPI Comments History of Present Illness Details 64-year-old female with MDD, LAKESHA, Vitami n D def, 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 Colon 05/20/19 ? Mammo 09/08/23 ? DEXA reports done > 5 years ago. Willing to have updated one, ordered today ? PAP last one about 15 years ago, declined future screening ? Tdap declined Specialists: Ortho Counselor Here today for CPE Patient of Dr [facility]inter[facility] - wears glasses Wt is up; not moving as much d/t being out of work w/ injury. Labs done by primary care 03/03/2024 show normal CBC, normal CMP, lipid profile acceptable, vitamin-D low at 28, normal thyroid function Skin no concerns Left wrist fracture, healing. Still in PT Remains out of work Has pain in left shoulder and neck s/p fracture. Plan Continue all medications as prescribed. Return to the office next week for left ear lavage. Use Debrox as directed. We will need to follow up with primary care for ongoing anxiety and depression. Continue care with counselor. This note is constructed using voice recognition software. While every effort has been made to ensure accuracy in artist color separation, still errors may have been included Sometimes, these errors may affect the content or meaning of the given sentence . [facility] Medical History (Updated 06/09/24 @ 16:28 by Shoshana Gomez [facility]) Depression with anxiety Insomnia Snoring Major depression Surgical History No pertinent past surgical history Social History Housing: Apartment Patient Tobacco Use Status: Never used Tobacco e-Cigarette/Vaping Use: Never Used Second Hand Smoke Exposure: No service: No Current occupational status: employed Current occupational exposures/hazards: No Cognitive needs: No Hearing needs: No Vision needs: No Questionnaire PHQ-9 Over the last 2 weeks, how often have you been bothered by any of the following problems? 1. Little interest or pleasure in doing things: several days 2. Feeling down, depressed, or hopeless: several days 3. Trouble falling or staying asleep, or sleeping too much: not at all 4. Feeling tired or having little energy: several days 5. Poor appetite or overeating: several days 6. Feeling bad about yourself - or that you are a failure or have let yourself or your family down: several days 7. Trouble concentrating on things, such as reading the newspaper or watching television: several days 8. Moving or speaking so slowly that other people could have noticed. Or the opposite - being so fidgety or restless that you have been moving around a lot more than usual: not at all 9. Thoughts that you would be better off or of hurting yourself in some way: not at all Total score: 6 Depression Screening Interpretation: Positive Depression Screening Follow-up: Existing condition Depression Screening Done: Yes 19789 - PHQ-9 Billing: Yes Source: Developed by Drs. Rosalio Evans, Koki Hassan, Jg Guerra and colleagues, with an educational shweta from [employer]. Thrive Questionnaire Date Thrive assessed: 06/09/24 I am a: Patient What is your living situation today?: I have a steady place to live Within the past 12 months, did the food you bought not last and you didn't have the money to get more?: Never true Within the past 12 months, did you worry whether your food would run out before you got money to buy more?: Never true Do you have trouble paying for medicines?: No Do you have trouble getting transportation to medical appointments?: No Do you have trouble paying your heating and electricity bill?: No Do you have trouble taking care of your child, family member or friend?: No Do you have trouble with day-to-day activities such as bathing, preparing meals, shopping, managing finances, etc.?: No Are you currently unemployed and looking for a job?: No Are you interested in more education?: No Please select the resources that you would like help with: None THRIVE Score: 0 AUDIT C Alcohol Use Questionnaire (AUDIT-C) 1. How often do you have a drink containing alcohol?: Never 3. How often do you have six or more drinks on one occasion?: Never Total Score: 0 Score Reviewed/Action Taken: Yes LAKESHA-7 AMB Questionnaire LAKESHA-7 Date LAKESHA - 7 assessed: 06/09/24 Feeling nervous, anxious, or on edge: 1 = Several days Not being able to stop or control worryin = Several days Worrying too much about different things: 1 = Several days Trouble relaxin = Several days Being so restless that it is hard to sit still: 1 = Several days Becoming easily annoyed or irritable: 1 = Several days Feeling afraid as if something awful might happen: 0 = Not at all Total LAKESHA-7 score (0-4 normal; 5-9 mild; 10-14 moderate; 15-21 severe): 6 Source: Developed by Drs. Rosalio Evans, Koki Hassan, Jg Guerra and colleagues, with an educational shweta from [employer]. LAKESHA-7 Assessment Billing LAKESHA-7 Assessment Tool: LAKESHA-7 Assessment 96366 Review of Systems Const Details: Constitutional: Denies fever. Skin: Denies rash. Eye: Denies eye pain. ENMT: Denies sore throat and nasal congestion. Respiratory: Denies shortness of breath and cough. Gastrointestinal: Denies nausea, vomiting or abdominal pain. Cardiovascular: Denies chest pain and syncope. Genitourinary: Denies dysuria. Neurologic: Denies headaches, confusion, and weakness. Psychiatric: Denies suicidal thoughts and substance abuse. Allergy/ Immunologic: Denies impaired immunity. Physical exam (Primary Care) Vital Signs: Last Vital Signs Pulse 68 06/09/24 09:00 Resp 14 06/09/24 09:00 BP 118/68 06/09/24 09:00 Pulse Ox 97 06/09/24 09:00 Oxygen Delivery Method Room Air 06/09/24 09:00 BMI result Body Mass Index 28.6 BMI Assessment/Plan discussion: High BMI High, discussed plan: lifestyle Tobacco/Smoking Status: Tobacco use Status Tobacco use date assessed 03/14/24 06/09/24 08:58 Patient Tobacco Use Status Never used Tobacco 06/09/24 08:58 e-Cigarette/Vaping Use Never Used 06/09/24 08:58 PHQ-9: PHQ-9 Score PHQ-9: Total score 6 06/09/24 09:48 Depression Screening Interpretation: Positive Depression Screening Follow-up: Existing condition Thrive Assessment: Date of Thrive Assessment Date Thrive assessed 06/09/24 06/09/24 09:48 Advance Care Planning discussion: Exists, not on file Date of discussion: 06/09/24 Who was present: self Forms completed: Health Care Proxy and MOLST Time spent: 1-15 minutes, not on file Actual minutes spent: 5 Const Other: General: Well developed, well nourished, in no acute distress. Appears stated age. Head: Normocephalic, atraumatic. Eyes: Pupils are equal, round and reactive to light and accommodation. Conjunctivae are clear. Vision grossly normal. Ears: TMs clear on the right, cerumen impaction on the left unable to see TM Nose: Patent, without discharge. Mouth: There are no ulcers or lesions noted. No inflammation, no post nasal drip, no plaques nor exudates. Neck: Supple, no adenopathy or thyromegaly. Lungs: Clear to auscultation bilaterally. No rales, rhonchi or wheeze noted. Good air flow in all rangel. Heart: Regular rate and rhythm. No murmurs, click, rubs or gallops are noted. Abdomen: Bowel sounds present in all quadrants. The abdomen is soft, nontender, with no masses or organomegaly noted. No hernias are noted. Musculoskeletal: Joints are nontender, without swelling, redness, or effusions. Range of motion is observed to be normal. Pulses: Peripheral pulses are equal and palpable bilaterally. Extremities: No clubbing, cyanosis nor edema is noted. Neurologic: Gait and station normal. Cranial Nerves 2-12 intact. Motor strength grossly symmetrical and intact. No sensory loss. Balance normal. Skin: No rashes, ulcers, or lesions noted. Turgor is good. Skin color is good. Hair and nails are without abnormalities. Psych: Normal eye contact, affect and mood appropriate, and normal interactions. Patient is alert and appropriate to context. Assessment and Plan Assessment & Plan (1) Encounter for general adult medical examination without abnormal findings: Code(s): Z00.00 - Encounter for general adult medical examination without abnormal findings (2) Impacted cerumen, left ear: Code(s): H61.22 - Impacted cerumen, left ear (3) Vitamin D deficiency: Code(s): E55.9 - Vitamin D deficiency, unspecified (4) Screening for osteoporosis: Code(s): Z13.820 - Encounter for screening for osteoporosis (5) MDD (major depressive disorder), recurrent episode: Code(s): F33.9 - Major depressive disorder, recurrent, unspecified Qualifiers: Major depression episode severity: mild Qualified Code(s): F33.0 - Major depressive disorder, recurrent, mild (6) LAKESHA (generalized anxiety disorder): Code(s): F41.1 - Generalized anxiety disorder (7) Hypercholesterolemia: Code(s): E78.00 - Pure hypercholesterolemia, unspecified Orders: Orders XR DEXA axial skeleton Today E55.9 - Vitamin D deficiency, unspecified, Z13.820 - Encounter for screening for osteoporosis Medications: New carbamide peroxide 6.5% (Debrox) 5 drps otic (ears) DAILY 5 days 15 mL 0RF BILAT EARS Refilled cholecalciferol (vitamin D3) 1,250 mcg PO QWEEK 14 caps 0RF Discontinued lithium carbonate Covering script for psychiatrist. Discontinued Reason: Patient no longer taking 300 mg PO BID 90 days 180 tabs 1RF Patient Instructions: Earwax (Cerumen Impaction) Created in Ears Earwax, called cerumen, is produced by special wax-forming glands located in the skin of the outer one-third of the ear canal. It is normal to have cerumen in ear canal as this waxy substance serves as a self-cleaning agent with protective, lubricating, and antibacterial properties. The absence of earwax may result in dry, itchy ears. Self-cleaning means there is a slow and campground caretaker movement of earwax and skin cells from the eardrum to the ear opening. Old earwax is constantly being transported, assisted by chewing and jaw motion, from the ear canal to the ear opening where, most of the time, it dries, flakes, and falls out. What Are the Symptoms of an Earwax Blockage? Symptoms of an earwax problem may include: Earache Feeling of plugged hearing or fullness in the ear Partial hearing loss that gets worse Tinnitus, ringing, or noises in the ear Itching, odor, or discharge Coughing Pain Infection What Causes Earwax Blockage? When a patient has wax blockage against the eardrum, it is often because they have been probing the ear with such things as cotton-tipped swabs, lily pins, or twisted napkin corners. These objects only push the wax in deeper in the ear canal. Why Is It Dangerous to Use Swabs to Remove Earwax? Wax blockage is one of the most common causes of hearing loss. This is often caused by attempts to clean the ear with cotton swabs. Most cleaning attempts merely push the wax deeper into the ear canal which is shaped like an hourglass, causing a blockage at the narrowing part of the ear canal. In addition, accident al trauma to the ear drum or ear bones can occur if the swab is pushed too deep. Good intentions to keep ears clean may lessen the ability to hear. The ear is a delicate and complicated body part, including the skin of the ear canal and the eardrum. Therefore, special care should be given to this part of the body. Discontinue the habit of inserting cotton-tipped swabs or other objects into the ear canals. What Are the Treatment Options? Cleaning a working ear can be done by washing it with a soft cloth, but do not insert anything into the ear. Ideally, the ear canals should never have to be cleaned. However, that isn?t always the case. The ears should be cleaned when enough earwax gathers to cause symptoms or to prevent a needed assessment of the ear by your doctor. This condition is call cerumen impaction. Most cases of ear wax blockage respond to home treatments used to soften wax. Patients can try placing a few drops of mineral oil, baby oil, glycerin, or commercial drops in the ear. Detergent drops such as hydrogen peroxide or carbamide peroxide (available in most pharmacies) may also aid in the removal of wax. Irrigation or ear syringing is commonly used for cleaning and can be performed by a physician or at home using a commercially available irrigation kit. Common solutions used for syringing include water and saline, which should be warmed to body temperature to prevent dizziness. Ear syringing is most effective when water, saline, or wax dissolving drops are put in the ear canal 15 to 30 minutes before treatment. Caution is advised to avoid having your ears irrigated if you have diabetes, a hole in the eardrum (perforation), tube in the eardrum, skin problems such as eczema in the ear canal or a weakened immune system. >> If you have been prescribed Debrox, use as directed for 5 nights and return to the office on Day 6 for an ear lavage to remove the wax<< Manual removal of earwax is also effective. This is most often performed by an ENT (ear, nose, and throat) specialist, or chief console operator, using suction or special miniature instruments, and a microscope to magnify the ear canal. Manual removal is preferred if your ear canal is narrow, the eardrum has a perforation or tube, other methods have failed, or if you have skin problems affecting the ear canal, diabetes or a weakened immune system. When Should I Talk to a Doctor? If home treatments do not help, or if wax has accumulated so much that it blocks your ear canal and your ability to hear, an ENT specialist may prescribe eardrops designed to soften wax, or they may wash or vacuum it out. Your ENT specialist may also need to remove the wax under microscopic visualization. If there is a possibility of a perforation in the eardrum, consult a physician prior to trying any [id number]-[id number] remedies. Putting eardrops or other products in the ear with the presence of an eardrum perforation may cause pain or an infection. Washing water through such a hole could start an infection. If you are prone to repeated wax impaction or use hearing aids, consider seeing your doctor every six to 12 months for a checkup and routine preventive cleaning. What Questions Should I Ask My Doctor? What are the benefits and risks/side effects of different cerumen removal management options: earwax softening products, water irrigation vs. physical removal? Does cerumen accumulation vary with age, gender, familial or dietary intake? How do I manage swimming underwater with cerumen impaction? Should anything be done to the ears to prevent a buildup of earwax? How often should cerumen be removed from the ears? Are ear candles a safe option for removing earwax? Health screenings for women You should visit your health care provider from time to time, even if you are healthy. The purpose of these visits is to: Screen for medical issues Assess your risk for future medical problems Encourage a healthy lifestyle Update vaccinations and other preventive care services Help you get to know your provider in case of an illness Information Even if you feel fine, you should still see your provider for regular checkups. These visits can help you avoid problems in the future. For example, the only way to find out if you have high blood pressure is to have it checked regularly. High blood sugar and high cholesterol levels also may not have any symptoms in the early stages. A simple blood test can check for these conditions. There are specific times when you should see your provider or receive specific health screenings. The [place] Preventive Services Task Force publishes a list of recommended screenings. Below are screening guidelines for women ages 18 to 39. BLOOD PRESSURE SCREENING Your blood pressure should be checked at least once every 3 to 5 years if: Your blood pressure is in the normal range (top number less than 120 mm Hg and bottom number less than 80 mm Hg) You don't have risk factors for high blood pressure Ask your provider if you need your blood pressure checked more often if: The top number is 120 to 129 mm Hg or the bottom number is 70 to 79 mm Hg You have diabetes, heart disease, kidney problems, are overweight, or have certain other health conditions You have a first-degree relative with high blood pressure You are Black You had high blood pressure during a If the top number is 130 mm Hg or greater or the bottom number is 80 mm Hg or greater, this is considered stage 1 hypertension. Schedule an appointment with your provider to learn how you can reduce your blood pressure. Watch for blood pressure screenings in your area. Ask your provider if you can stop in to have your blood pressure checked. BREAST CANCER SCREENING Experts do not agree about the benefits of breast self-exams in finding breast cancer or saving lives. Talk to your provider about what is best for you. A screening mammogram is not recommended for most women under age 40. Your provider may discuss and recommend mammograms, MRI scans, or ultrasounds if you have an increased risk for breast cancer, such as: A mother or sister who had breast cancer at a young age (most often starting screening earlier than the age the close relative was diagnosed) You carry a high-risk genetic marker CERVICAL CANCER SCREENING Cervical cancer screening should start at age 21 years unless your provider advises otherwise. After the first test: Women ages 21 through 29 should have a Pap test every 3 years. Exoprts do not agree on whether HPV testing is recommended for this age group. Women ages 30 through 65 should be screened with either a Pap test every 3 years or the HPV test every 5 years or both tests every 5 years (called cotesting ). Women who have been treated for precancer (cervical dysplasia) should continue to have Pap tests for 20 years after treatment or until age 65, whichever is longer. If you have had your uterus and cervix removed (total hysterectomy), and you have not been diagnosed with cervical cancer or precancer (high grade cervical neoplasia), you do not need cervical cancer screening. CHOLESTEROL SCREENING Cholesterol screening should begin at: Age 45 for women with no known risk factors for coronary heart disease Age 20 for women with known risk factors for coronary heart disease Repeat cholesterol screening should take place: Every 5 years for women with normal cholesterol levels More often if changes occur in lifestyle (including weight gain and diet) More often if you have diabetes, heart disease, kidney problems, or certain other conditions DIABETES SCREENING You should be screened for diabetes starting at age 35 and then repeated every 3 years if you have no risk factors for diabetes. Screening may need to start earlier and be repeated more often if you have other risk factors for diabetes, such as: You have a first degree relative with diabetes. You are overweight or have obesity. You have high blood pressure, prediabetes, or a history of heart disease. Screening for diabetes should be done if you are planning to become and you are overweight and have other risk factors such as high blood pressure. DENTAL EXAM Go to the dentist once or twice every year for an exam and cleaning. Your dentis t will evaluate if you need more frequent visits. EYE EXAM Have an eye exam every 5 to 10 years before age 40. If you have vision problems, have an eye exam every 2 years or more often if recommended by your provider. You should have an eye exam that includes an examination of your retina (back of your eye) at least every year if you have diabetes. IMMUNIZATIONS Commonly needed vaccines include: Flu shot: get one every year. COVID-19 vaccine: ask your provider what is best for you. Tetanus-diphtheria and acellular pertussis (Tdap) vaccine: have one at or after age 19 as one of your tetanus-diphtheria vaccines if you did not receive it as an adolescent. Tetanus-diphtheria: have a booster (or Tdap) every 10 years. Varicella vaccine: receive 2 doses if you never had chickenpox or the varicella vaccine. Hepatitis B vaccine: receive 2, 3, or 4 doses, depending on your exact circumstances. Measles, mumps, and rubella (MMR) vaccine: receive 1 to 2 doses if you are not already immune to MMR. Your provider can tell you if you are immune. Ask your provider about the human papillomavirus (HPV) vaccine if: You have not received the HPV vaccine in the past You have not completed the full vaccine series (you should catch up on this shot) Ask your provider if you should receive other immunizations if you have certain health problems that increase your risk for some diseases such as pneumonia. INFECTIOUS DISEASE SCREENING Women who are sexually active should be screened for chlamydia and gonorrhea up until age 25. Women 25 years and older should be screened for chlamydia and gonorrhea if at high risk. Screening for hepatitis C: All adults ages 18 to 79 should get a one-time test for hepatitis C. people should be screened at every . Screening for human immunodeficiency virus (HIV): All people ages 15 to 65 should get a one-time test for HIV. Depending on your lifestyle and medical history, you may also need to be screened for infections such as syphilis and HIV, as well as other infections. PHYSICAL EXAM All adults should visit their provider from time to time, even if they are healthy. The purpose of these visits is to: Screen for disease Assess your risk of future medical problems Encourage a healthy lifestyle Update your vaccinations and other preventive care services Maintain a relationship with a provider in case of an illness Your height, weight, and BMI should be checked at every exam. During your exam, your provider may ask you about: Depression and anxiety Diet and exercise Alcohol and tobacco use Safety issues, such as using seat belts, smoke detectors, and intimate partner violence Your medicines and risk for interactions SKIN SELF-EXAM Your provider may check your skin for signs of skin cancer, especially if you're at high risk, such as if you: Have had skin cancer before Have close relatives with skin cancer Have a weakened immune system OTHER SCREENING Talk with your provider about colon cancer screening if you have a strong family history of colon cancer or polyps, or if you have had inflammatory bowel disease or polyps yourself. Routine bone density screening of women under 40 is not recommended. Review Declined TDap/Td: 06/09/24 Coding Level of Care Code Est Pt Prev Care >65y(31286) Diagnoses Encounter for general adult medical examination without abnormal findings Z00.00 Impacted cerumen, left ear H61.22 Vitamin D deficiency E55.9 Screening for osteoporosis Z13.820 Mild episode of recurrent major depressive disorder F33.0 Major depression episode severity: mild LAKESHA (generalized anxiety disorder) F41.1 Hypercholesterolemia E78.00 Additional Codes LAKESHA-7 Assessment Billing - LAKESHA-7 Assessment Tool: LAKESHA-7 Assessment [id number] ([id number]) Vital Signs *Quality* - Advance Care Planning discussion: Exists, not on file ([id number]) Vital Signs *Quality* - Time spent: 1-15 minutes, not on file ([id number])
[2024-06-09 09:00] VITALS: BP 118/68; PULSE 68; RESP 14; O2SAT 97; BMI 28.6
== END 2024-06-09 09:47 | disposition home or self-care (01) ==
PROVIDERS: PCP Family Medicine; Visit Provider Nurse Practitioner Family
DX: Z00.00 Encounter for general adult medical examination without abnormal findings (principal); F33.0 Major depressive disorder, recurrent, mild; H61.22 Impacted cerumen, left ear; E55.9 Vitamin D deficiency, unspecified; Z13.820 Encounter for screening for osteoporosis; F41.1 Generalized anxiety disorder; E78.00 Pure hypercholesterolemia, unspecified
CPT/HCPCS: 1124F; 99397

== ENCOUNTER 2024-06-20 09:02 | Outpatient (AMB) | payer BC, SELFPAY ==
--- NOTE | 2024-06-20 09:05 | MHC.PC.OV ---
Vital Signs 06/20/24 09:06 Height 5 ft 2 in Weight 155 lb 6 oz BMI 28.4 BP 102/66 Blood Pressure Location Rt brachial Position Sitting Respiration 14 Pulse 74 Pulse Source Pulse Oximeter Pulse Oximetry (%) 98 Oxygen Delivery Method Room Air Intake Visit Reasons: 1 week L ear lavage with me Intake Note: patient is here for a left ear lavage Allergies No Known Allergies [No Known Allergies*] Allergy (Verified 06/20/24 09:21) Medication List - Last Reconciled 06/20/24 by NAYELI Hart-VANDANA albuterol sulfate 90 mcg/actuation (ProAir HFA) 2 puffs inhalation Q4-6H PRN 30 days atorvastatin 20 mg PO BEDTIME 30 days cholecalciferol (vitamin D3) 1,250 mcg PO QWEEK fluoxetine 80 mg (2 x 40 mg) PO DAILY 90 days fluoxetine 10 mg PO DAILY 90 days lidocaine 4% 1 patch topical DAILY PRN Tobacco use date assessed: 03/14/24 Dental Screening Dental Screen Date: 06/20/24 Did you have a dental visit in the last 12 months?: Yes Did you have a dental problem in the last 6 months where you did not have access to dental care?: No Was dental information given to patient?: Patient has dentist HPI HPI Comments History of Present Illness Details Here today for ear lavage in the left side. Use Debrox as directed. Also needs a refill on her lidocaine patches that she uses as needed for pain. [facility] Medical History (Updated 06/20/24 @ 09:24 by NAYELI Hart-VANDANA) Depression with anxiety Insomnia Snoring Major depression Surgical History No pertinent past surgical history Social History Housing: Apartment Patient Tobacco Use Status: Never used Tobacco e-Cigarette/Vaping Use: Never Used Second Hand Smoke Exposure: No service: No Current occupational status: employed Current occupational exposures/hazards: No Cognitive needs: No Hearing needs: No Vision needs: No Questionnaire PHQ-9 Over the last 2 weeks, how often have you been bothered by any of the following problems? 1. Little interest or pleasure in doing things: several days 2. Feeling down, depressed, or hopeless: several days 3. Trouble falling or staying asleep, or sleeping too much: several days 4. Feeling tired or having little energy: several days 5. Poor appetite or overeating: several days 6. Feeling bad about yourself - or that you are a failure or have let yourself or your family down: several days 7. Trouble concentrating on things, such as reading the newspaper or watching television: not at all 8. Moving or speaking so slowly that other people could have noticed. Or the opposite - being so fidgety or restless that you have been moving around a lot more than usual: not at all 9. Thoughts that you would be better off or of hurting yourself in some way: not at all Total score: 6 36518 - PHQ-9 Billing: Yes Source: Developed by Drs. Rosalio Evans, Koki Hassan, Jg Guerra and colleagues, with an educational shweta from [employer]. Thrive Questionnaire Date Thrive assessed: 06/09/24 LAKESHA-7 AMB Questionnaire LAKESHA-7 Date LAKESHA - 7 assessed: 06/20/24 Feeling nervous, anxious, or on edge: 1 = Several days Not being able to stop or control worryin = Several days Worrying too much about different things: 1 = Several days Trouble relaxin = Several days Being so restless that it is hard to sit still: 1 = Several days Becoming easily annoyed or irritable: 0 = Not at all Feeling afraid as if something awful might happen: 0 = Not at all Total LAKESHA-7 score (0-4 normal; 5-9 mild; 10-14 moderate; 15-21 severe): 5 Source: Developed by Drs. Rosalio Evans, Koki Hassan, Jg Guerra and colleagues, with an educational shweta from [employer]. LAKESHA-7 Assessment Billing LAKESHA-7 Assessment Tool: LAKESHA-7 Assessment 65773 Physical exam (Primary Care) Vital Signs: Last Vital Signs Pulse 74 06/20/24 09:06 Resp 14 06/20/24 09:06 BP 102/66 06/20/24 09:06 Pulse Ox 98 06/20/24 09:06 Oxygen Delivery Method Room Air 06/20/24 09:06 BMI result Body Mass Index 28.4 Tobacco/Smoking Status: Tobacco use Status Tobacco use date assessed 03/14/24 06/20/24 09:08 Patient Tobacco Use Status Never used Tobacco 06/20/24 09:08 e-Cigarette/Vaping Use Never Used 06/20/24 09:08 PHQ-9: PHQ-9 Score PHQ-9: Total score 6 06/20/24 09:10 Thrive Assessment: Date of Thrive Assessment Date Thrive assessed 06/09/24 06/20/24 09:08 Office Procedures Cerumen Removal From which ear canal was the cerumen removed: left Removal: irrigation Notes: patient tolerated procedure well, no complications and ear canal clear [id number] Irrigation/Lavage Assessment and Plan Assessment & Plan (1) Impacted cerumen, left ear: Code(s): H61.22 - Impacted cerumen, left ear (2) Left wrist fracture: Code(s): S62.102A - Fracture of unspecified carpal bone, left wrist, initial encounter for closed fracture Qualifiers: Encounter type: sequela Fracture type: closed Qualified Code(s): S62.102S - Fracture of unspecified carpal bone, left wrist, sequela Medications: New lidocaine 4% 1 patch topical DAILY PRN 30 ea 11RF pain Coding Level of Care Code Tele Est Pt Level 3 (56320) Diagnoses Impacted cerumen, left ear H61.22 Closed fracture of left wrist, sequela S62.102S Encounter type: sequela Fracture type: closed CPT Codes Office Procedure - CPT: 25455-Oos Irrigation/Lavage ([id number]) Additional Codes LAKESHA-7 Assessment Billing - LAKESHA-7 Assessment Tool: LAKESHA-7 Assessment 36615 ([id number])
[2024-06-20 09:06] VITALS: BP 102/66; PULSE 74; RESP 14; O2SAT 98; BMI 28.4
== END 2024-06-20 09:22 | disposition home or self-care (01) ==
PROVIDERS: PCP Family Medicine; Visit Provider Nurse Practitioner Family
DX: H61.22 Impacted cerumen, left ear (principal); S62.102S Fracture of unspecified carpal bone, left wrist, sequela

== ENCOUNTER → 2024-06-20 09:02 | Outpatient (BNVA) | payer BC, SELFPAY | PROVIDERS: PCP Family Medicine; Visit Provider Nurse Practitioner Family | DX: H61.22 Impacted cerumen, left ear (principal); S62.102D Fracture of unspecified carpal bone, left wrist, subsequent encounter for fracture with routine healing | CPT/HCPCS: 69209; 96127 ==

== ENCOUNTER 2024-07-01 08:54 | Outpatient (REF) | payer BC, SELFPAY ==
--- NOTE | ~2024-07-01 | MM_ITS ---
EXAMINATION: BONE DENSITOMETRY CLINICAL INDICATION: Vitamin D deficiency, unspecified. COMPARISON: Previous BD dated 01/09/2017 and baseline BD dated 11/09/2005. TECHNIQUE: Using a [employer] DXA System (software version: 13.1) manufactured by [employer], dual-energy x-ray absorptiometry was performed of the lumbar spine and left hip. The images are of good technical quality. Summary results are attached. FINDINGS: LEFT FEMUR, NECK: Current: BMD 0.904 g/cm2, Z-score 0.5, T-score -1.0, normal. Prior: BMD 0.921 g/cm2. Baseline: BMD 0.951 g/cm2. LEFT FEMUR, TOTAL: Current: BMD 0.972 g/cm2, Z-score 0.9, T-score -0.3, normal, 1.1% decrease from previous, 4.8% decrease from baseline (<5% change is not significant). Prior: BMD 0.983 g/cm2. Baseline: BMD 1.021 g/cm2. AP SPINE L1-L4: Current: BMD 1.121 g/cm2, Z-score 1.0, T-score -0.5, normal, 2.9% decrease from previous, 5.7% decrease from baseline (<5% change is not significant). Prior: BMD 1.154 g/cm2. Baseline: BMD 1.189 g/cm2. IDENTIFIED RISK FACTORS: Early menopause, history of fracture (adult), secondary osteoporosis. HISTORY OF FRACTURE: Wrist. MEDICATIONS: Vitamin D. MM/XR DEXA axial skeleton IMPRESSION: 1. DIAGNOSIS: Normal bone density based on the lowest T-score value of -1.0 in the femoral neck applying World Health Organization criteria. 2. 10-YEAR FRACTURE RISK PREDICTION, FRAX: According to the guidelines, FRAX calculation should only be performed on patients in the osteopenia bone density category. Therefore, FRAX was not performed on this patient. 3. Treatment Recommendations: NOF guidelines recommend consideration for treatment in postmenopausal women and men age 50 and older presenting with the following: -A hip or vertebral (clinical or morphometric) fracture. -T-score less than or equal to -2.5 at the femoral neck or spine after appropriate evaluation to exclude secondary causes. -Low bone mass at the hip or spine and a 10-year fracture probability by FRAX of greater than or equal to 3% for hip fracture or greater than or equal to 20% for major osteoporotic fracture based on the [place] adapted WHO algorithm. 4. Other Recommendations: All treatment decisions require clinical judgment and consideration of individual patient factors, including patient preferences, comorbidities, previous drug use, risk factors not captured in the FRAX model (e.g. frailty, falls, vitamin D deficiency, increased bone turnover, interval significant decline in bone density) and possible under or overestimation of fracture risk by FRAX. FUTURE SCAN RECOMMENDATION: People with diagnosed cases of osteoporosis or at high risk for fracture should have regular bone mineral density tests. For patients eligible for Medicare, routine testing is allowed once every 2 years. The testing frequency can be increased to one year for patients who have rapidly progressing disease, those who are receiving or discontinuing medical therapy to restore bone mass, or have additional risk factors. Electronically signed by: Baltazar Blackmon MD 07/08/2024 01:26 PM EDT
== END 2024-07-01 08:55 | disposition home or self-care (01) ==
LOC: HO.MAMMO 08:54
PROVIDERS: PCP Family Medicine; Visit Provider Nurse Practitioner Family
DX: Z13.820 Encounter for screening for osteoporosis (principal); Z78.0 Asymptomatic menopausal state; E55.9 Vitamin D deficiency, unspecified
CPT/HCPCS: 77080

== ENCOUNTER 2024-09-13 07:53 | Outpatient (REF) | payer BC, SELFPAY | END 2024-09-13 07:54 | disposition home or self-care (01) | LOC: HO.MAMMO 07:53 | PROVIDERS: PCP Family Medicine; Visit Provider Family Medicine | DX: Z12.31 Encounter for screening mammogram for malignant neoplasm of breast (principal) | CPT/HCPCS: 77063; 77067 ==

== ENCOUNTER → 2024-09-13 08:00 | Outpatient (BNV) | payer BC, SELFPAY | PROVIDERS: PCP Family Medicine; Visit Provider Internal Medicine | DX: Z12.31 Encounter for screening mammogram for malignant neoplasm of breast (principal) | CPT/HCPCS: 77063; 77067 ==

== ENCOUNTER → 2024-11-07 10:30 | Outpatient (BNVA) | payer BC, SELFPAY | PROVIDERS: PCP Family Medicine; Visit Provider Internal Medicine | DX: J18.9 Pneumonia, unspecified organism (principal); E78.5 Hyperlipidemia, unspecified | CPT/HCPCS: 96127 ==

== ENCOUNTER 2024-11-24 08:40 | Outpatient (AMB) | payer MEDICARE, SELFPAY ==
--- NOTE | 2024-11-24 08:42 | AM.OFFWIN_ITS ---
Intake Vital Signs 11/24/24 08:48 Height 5 ft 2 in Weight 152 lb 4 oz BMI 27.8 BP 112/66 Blood Pressure Location Rt brachial Position Sitting Respiration 12 Pulse 77 Pulse Source Pulse Oximeter Temp 97.7 F Temp Source Oral Pulse Oximetry (%) 98 Oxygen Delivery Method Room Air Intake Visit Reasons: cough/headache/sinus Intake Note: Patient complaining of coughing, sinus px, and headache x 1 month Patient Tobacco Use Status: Never used Tobacco Allergies No Known Allergies [No Known Allergies*] Allergy (Verified 11/24/24 08:55) Medication List - Last Reconciled 11/24/24 by Shoshana Gomez, CONTRACT DESIGN AGENT- albuterol sulfate 90 mcg/actuation (ProAir HFA) 2 puffs inhalation Q4-6H PRN 30 days atorvastatin 20 mg PO BEDTIME 30 days cholecalciferol (vitamin D3) 1,250 mcg PO QWEEK fluoxetine 10 mg PO DAILY 90 days fluoxetine 80 mg (2 x 40 mg) PO DAILY 90 days fluoxetine 10 mg PO DAILY 90 days fluoxetine 80 mg (2 x 40 mg) PO DAILY 90 days lidocaine 4% 1 patch topical DAILY PRN Do you need a note to return to daycare/school/sports/work: No HPI HPI Comments History of Present Illness Details History - The patient is a 64-year-old female pr esenting with cough, sinus pain, and headaches. - Symptoms began over a month ago and we re initially managed with doxycycline, steroids, and codeine-infused cough syrup with temporary improvement. - Despite initial management, symptoms h ave recurred including a persistent cough and continuous headaches. - She reports receiving similar respirat ory infections annually, usually managed with an inhaler. - The current episode of symptoms appear s persistent despite pharmacological intervention. Physical Exam General: Awake, alert. No apparent distress Eyes: Sclera and conjunctiva clear bilaterally Nose: Nares patent, turbinates within normal limits, no sinus tenderness with palpation bilaterally, but patient reports pain or pressure when bending over Ears: Tympanic membranes intact and clear bilaterally, slight congestion noted R>L Throat: Moist mucosa membrane, pharynx within normal limits Cardiovascular: Regular rate and rhythm Respiratory: Clear to auscultation bilaterally, frequent coughing observed Discussion Notes I discussed with the patient the likely diagnosis related to her recurring respiratory symptoms and possible sinusitis. We reviewed management options to target her symptoms more effectively. I advised a short course of steroids to mitigate her persistent coughing. The importance of using an inhaler regularly, which will be refilled, was emphasized due to her annual respiratory issues. The patient was instructed on the administration of the new medication regimen to minimize gastrointestinal upset. Assessment and Plan 64-year-old female with history of seaso nal respiratory symptoms presenting with chronic cough, sinus pain, and headaches. Despite prior antibiotic and steroid treatment, symptoms have recurred. The current management plan includes altering antibiotic therapy and restarting a course of steroids for symptomatic relief. Continued use of inhalation therapy is recommended given her history of seasonal breathing difficulties. 1. Seasonal Respiratory Symptoms Refill of inhaler and advice for consistent use to manage worsening seasonal symptoms. Her improvement will be assessed in subsequent visits, with adjustments made if necessary. 2. Chronic Cough The patient start penicillin antibiotics for comprehensive bacterial coverage, complemented by a short-term steroid course to control airway inflammation. Her antitussive will be revised for ongoing management without the drowsiness experienced with codeine. 3. Headache Treatment largely revolves around managing sinus-related manifestations which are exacerbating headaches. Improved sinus management is anticipated to relieve headache intensity. 4. Sinus Pain The prescribed penicillin aims to alleviate sinusitis symptoms. The steroid course is to manage inflammatory aspects potentially contributing to sinus discomfort. Should symptoms persist, further diagnostics may be warranted. Patient Instructions - Take the prescribed antibiotics twice daily with food to avoid stomach upset. - Use the steroid medication as directed , preferably in the morning. - Cough suppressant can be taken as need ed but be aware of potential drowsiness. - Regularly use the inhaler for symptom control - Return for evaluation if symptoms do n ot improve after a week or worsen. Consent The patient provided informed consent for management with the proposed antibiotics, steroids, and changes in cough medication. I explained the therapeutic benefits and potential side effects of each medication including possible gastrointestinal upset with antibiotics, the importance of timing with steroids to avoid insomnia, and the necessity of using an inhaler for respiratory management. The patient acknowledged understanding of instructions and agreed to the treatment plan. Patient was informed and verbally consented to the use of an ambient scribe for clinic note documentation during this visit. [facility] Medical History (Updated 11/11/24 @ 12:34 by Lanette Noland MD) Depression with anxiety Insomnia Major depression Snoring Surgical History No pertinent past surgical history Social History (Updated 11/07/24 @ 10:50 by Zonia Cee CMA) Housing: Apartment Alcohol intake: current Patient Tobacco Use Status: Never used Tobacco e-Cigarette/Vaping Use: Never Used Second Hand Smoke Exposure: No service: No Current occupational status: employed Current occupational exposures/hazards: No Cognitive needs: No Hearing needs: No Vision needs: No Physical Exam Vital Signs: Last Vital Signs Temp 97.7 F 11/24/24 08:48 Pulse 77 11/24/24 08:48 Resp 12 11/24/24 08:48 BP 112/66 11/24/24 08:48 Pulse Ox 98 11/24/24 08:48 Oxygen Delivery Method Room Air 11/24/24 08:48 BMI result Body Mass Index 27.8 Assessment & Plan Assessment & Plan (1) Acute bacterial sinusitis: Code(s): J01.90 - Acute sinusitis, unspecified; B96.89 - Other specified bacterial agents as the cause of diseases classified elsewhere (2) Cough: Code(s): R05.9 - Cough, unspecified Qualifiers: Cough type: acute Qualified Code(s): R05.1 - Acute cough Plan . Medications: New amoxicillin-pot clavulanate 875-125 mg 1 tab PO BID 7 days 14 tabs 0RF benzonatate 100 mg PO TID 10 days PRN 30 caps 1RF cough prednisone 20 mg PO DAILY 4 tabs 0RF Changed From albuterol sulfate 90 mcg/actuation (ProAir HFA) 2 puffs inhalation Q4-6H 30 days PRN 8.5 grams 0RF shortness of breath or wheezing R05.9 - Cough, unspecified To albuterol sulfate 90 mcg/actuation 2 puffs inhalation Q4-6H 30 days PRN 8.5 grams 0RF shortness of breath or wheezing R05.9 - Cough, unspecified Coding Level of Care Code Est Pt Level 3 (51150) Diagnoses Acute bacterial sinusitis J01.90; B96.89 Acute cough R05.1 Cough type: acute
[2024-11-24 08:48] VITALS: BP 112/66; PULSE 77; RESP 12; TEMP 36.5; O2SAT 98; BMI 27.8
== END 2024-11-24 09:02 | disposition home or self-care (01) ==
LOC: HO.HMCWIW 08:41
PROVIDERS: PCP Family Medicine; Visit Provider Nurse Practitioner Family
DX: J01.90 Acute sinusitis, unspecified (principal); B96.89 Other specified bacterial agents as the cause of diseases classified elsewhere; R05.1 Acute cough

== ENCOUNTER → 2024-11-24 08:40 | Outpatient (BNVA) | payer MEDICARE, SELFPAY | PROVIDERS: PCP Family Medicine; Visit Provider Nurse Practitioner Family | DX: J01.90 Acute sinusitis, unspecified (principal); B96.89 Other specified bacterial agents as the cause of diseases classified elsewhere; R05.1 Acute cough | CPT/HCPCS: 99212 ==

== ENCOUNTER 2025-01-15 08:29 | Outpatient (REF) | payer MEDICARE, SELFPAY ==
--- NOTE | ~2025-01-15 | XR_ITS ---
EXAMINATION: XR CHEST 2 VIEWS HISTORY: R05.9 - Cough, unspecified COMPARISON: Comparison is made with the prior examination dated 02/16/2022. FINDINGS: PA and lateral views of the chest are submitted. The lungs are expanded and clear. There is no pleural effusion, pneumothorax, or pulmonary vascular congestion. The heart is normal in size. There is degenerative disc disease of the spine. XR/XR chest 2V IMPRESSION: No acute cardiopulmonary abnormality. Electronically signed by: Rosalio Lau MD 01/16/2025 07:43 AM EDT
== END 2025-01-15 08:30 | disposition home or self-care (01) ==
LOC: HO.XRAY 08:29
PROVIDERS: PCP Family Medicine; Visit Provider Family Medicine
DX: R05.9 Cough, unspecified (principal)
CPT/HCPCS: 71046; 99212

== ENCOUNTER 2025-01-15 08:29 | Outpatient (AMB) | payer MEDICARE, SELFPAY ==
--- NOTE | 2025-01-15 08:32 | A.OFFPC_ITS ---
Vital Signs 01/15/25 08:36 Height 5 ft 2 in Weight 153 lb 8 oz BMI 28.1 BP 145/67 H Blood Pressure Location Rt brachial Position Sitting Respiration 16 Pulse 65 Pulse Source Pulse Oximeter Temp 97.6 F Temp Source Oral Pulse Oximetry (%) 98 Oxygen Delivery Method Room Air Intake Visit Reasons: est care/persistent cough Intake Note: patient here here c/o persistent cough. Professor Of Music Required: No Is last menstrual period known: No Post menopausal: No Patient : No Allergies No Known Allergies [No Known Allergies*] Allergy (Verified 01/15/25 08:35) Tobacco use date assessed: 01/15/25 Fall risk assessment: 1 Fall in past year Last assessed Fall Risk: 01/15/25 Dental Screening Dental Screen Date: 01/15/25 Did you have a dental visit in the last 12 months?: Yes Did you have a dental problem in the last 6 months where you did not have access to dental care?: No Was dental information given to patient?: Patient has dentist HPI est care/persistent cough HPI Details Patient?presents?for?ongoing?cough. She?was?seen?for?upper?respiratory?illness?with?cough in?November. She?was?treated?with?antibiotics. She?notes?that?will?send?her?symptoms?improved?but?cough?never?went?away. Headache?from?recurrent?coughing.??No?fevers?or?chills.??No?sinus?pain [facility] Medical History (Updated 11/11/24 @ 12:34 by Lanette Noland MD) Depression with anxiety Insomnia Snoring Major depression Surgical History No pertinent past surgical history Social History (Updated 11/07/24 @ 10:50 by Zonia Cee CMA) Housing: Apartment Alcohol intake: current Patient Tobacco Use Status: Never used Tobacco e-Cigarette/Vaping Use: Never Used Second Hand Smoke Exposure: No Patient : No service: No Current occupational status: employed Current occupational exposures/hazards: No Cognitive needs: No Hearing needs: No Vision needs: No Questionnaire PHQ-9 Over the last 2 weeks, how often have you been bothered by any of the following problems? 2. Feeling down, depressed, or hopeless: not at all Source: Developed by Drs. Rosalio Evans, Koki Hassan, Jg Guerra and colleagues, with an educational shweta from [employer]. Thrive Questionnaire Date Thrive assessed: 11/07/24 I am a: Patient What is your living situation today?: I have a steady place to live Within the past 12 months, did the food you bought not last and you didn't have the money to get more?: Never true Within the past 12 months, did you worry whether your food would run out before you got money to buy more?: Never true Do you have trouble paying for medicines?: No Do you have trouble getting transportation to medical appointments?: No Do you have trouble paying your heating and electricity bill?: No Do you have trouble taking care of your child, family member or friend?: No Do you have trouble with day-to-day activities such as bathing, preparing meals, shopping, managing finances, etc.?: No Are you currently unemployed and looking for a job?: I choose not to answer this question Are you interested in more education?: I choose not to answer this question Please select the resources that you would like help with: None Currently or been in a relationship where the following occur: I choose not to answer THRIVE Score: 0 LAKESHA-7 AMB Questionnaire LAKESHA-7 Date LAKESHA - 7 assessed: 11/07/24 Source: Developed by Drs. Rosalio Evans, Koki Hassan, Jg Guerra and colleagues, with an educational shweta from [employer]. Review of Systems Const Denies chills, Denies fatigue, Denies fever(s), Denies headache(s) and Denies weakness ENT Denies dizziness and Denies headache(s) Card Denies chest pain, Denies lightheadedness, Denies dyspnea and Denies other (Palpitations) Resp Reports cough, Denies dyspnea, Denies wheezing and Denies other ( shortness of breath) Musc Denies numbness and Denies tingling Neuro Denies dizziness, Denies headache(s), Denies numbness, Denies tingling, Denies paresthesias and Denies weakness Psych Denies anxiety and Denies depression Endo Denies fatigue Aller/Immun Denies wheezing Physical exam (Primary Care) Vital Signs: Last Vital Signs Temp 97.6 F 01/15/25 08:36 Pulse 65 01/15/25 08:36 Resp 16 01/15/25 08:36 BP 145/67 H 01/15/25 08:36 Pulse Ox 98 01/15/25 08:36 Oxygen Delivery Method Room Air 01/15/25 08:36 BMI result Body Mass Index 28.1 Tobacco/Smoking Status: Tobacco use Status Tobacco use date assessed 01/15/25 01/15/25 08:38 Patient Tobacco Use Status Never used Tobacco 01/15/25 08:34 e-Cigarette/Vaping Use Never Used 01/15/25 08:34 Thrive Assessment: Date of Thrive Assessment Date Thrive assessed 11/07/24 01/15/25 08:34 Currently or been in a relationship where the following occur: I choose not to answer Const General: no acute distress and well developed Nutritional Appearance: well nourished Orientation/consciousness: patient oriented x3 HENMT Head: Yes normocephalic and Yes atraumatic Eyes General: appearance normal, both eyes and all related structures Pupils: Equal, round and reactive pupils present EOM: EOMs intact bilaterally Resp Effort & Inspection: normal respiratory effort Auscultation: clear to auscultation bilaterally (Coarse?breath?sounds?throughout?lung?rangel?but?otherwise?CTA) Cardio Rate: regular rate Rhythm: regular rhythm Heart sounds: S1 normal heart sound present, S2 normal heart sound present, no gallops, no murmurs and no rubs Neuro General: patient oriented x3 and gait normal Cranial nerves: Yes Equal, round and reactive pupils present Psych Affect: normal affect Coding Level of Care Code Est Pt Level 3 (48479) Diagnoses Cough R05.9 Assessment & Plan Assessment & Plan (1) Cough: Code(s): R05.9 - Cough, unspecified Category: Medical Plan: Patient?had?had?an?upper?respiratory?illness?about?2?months?ago. Lungs?are?coarse?but?otherwise?clear?to?auscultation?bilaterally No?evidence?of?upper?airway?infection?today. Possible?initial?viral?illness?with subsequent?postviral?tussive?syndrome. ? Will?chest?checks?x-ray?to?rule?out?other?causes. Trial?prednisone?taper Will?follow-up?in?about?2?weeks?and?determine?next?steps Orders: Orders XR chest 2V Today R05.9 - Cough, unspecified Medications: New prednisone 4 tabs daily for 4 days, 3 tabs daily for 2 days, 2 tabs daily for 2 days, 1 tab daily for 2 days PO daily; 10 days 28 tabs 0RF
[2025-01-15 08:36] VITALS: BP 145/67; PULSE 65; RESP 16; TEMP 36.4; O2SAT 98; BMI 28.1
== END 2025-01-15 10:51 | disposition home or self-care (01) ==
LOC: HO.HMCFM 08:29
PROVIDERS: PCP Family Medicine; Visit Provider Family Medicine
DX: R05.9 Cough, unspecified (principal)

== ENCOUNTER → 2025-01-15 15:07 | Outpatient (BNV) | payer MEDICARE, SELFPAY | PROVIDERS: PCP Family Medicine; Visit Provider Radiology Diagnostic Radiology | DX: R05.9 Cough, unspecified (principal) | CPT/HCPCS: 71046 ==

== ENCOUNTER 2025-01-27 15:02 | Outpatient (AMB) | payer MEDICARE, SELFPAY ==
[2025-01-27 15:27] VITALS: BP 124/64; PULSE 71; RESP 14; TEMP 37.1; O2SAT 98; BMI 27.9
--- NOTE | 2025-01-27 15:27 | MHC.PC.OV ---
Vital Signs 01/27/25 15:27 Height 5 ft 2 in Weight 152 lb 8 oz BMI 27.9 BP 124/64 Blood Pressure Location Rt brachial Position Sitting Respiration 14 Pulse 71 Pulse Source Pulse Oximeter Temp 98.8 F Temp Source Oral Pulse Oximetry (%) 98 Oxygen Delivery Method Room Air Intake Visit Reasons: FMLA PW Allergies No Known Allergies [No Known Allergies*] Allergy (Verified 01/27/25 15:28) Tobacco use date assessed: 01/15/25 Dental Screening Dental Screen Date: 01/15/25 HPI FMLA PW HPI Details 64 y/o female presents today to f/u cough. Trialing prednisone taper. Also here for FMLA paperwork. Chest x-ray 01/15/25 showed no acute cardiopulmonary abnormality. Pt notes cough has resolved. Reports fatigue. She denies any hx of sleep apnea and has gotten tested before. She states she feels she sleeps well. [facility] Medical History (Updated 11/11/24 @ 12:34 by Lanette Noland MD) Depression with anxiety Insomnia Snoring Major depression Surgical History No pertinent past surgical history Social History (Updated 11/07/24 @ 10:50 by Zonia Cee CMA) Housing: Apartment Alcohol intake: current Patient Tobacco Use Status: Never used Tobacco e-Cigarette/Vaping Use: Never Used Second Hand Smoke Exposure: No service: No Current occupational status: employed Current occupational exposures/hazards: No Cognitive needs: No Hearing needs: No Vision needs: No Questionnaire Thrive Questionnaire Date Thrive assessed: 11/07/24 I am a: Patient What is your living situation today?: I have a steady place to live Within the past 12 months, did the food you bought not last and you didn't have the money to get more?: Never true Within the past 12 months, did you worry whether your food would run out before you got money to buy more?: Never true Do you have trouble paying for medicines?: No Do you have trouble getting transportation to medical appointments?: No Do you have trouble paying your heating and electricity bill?: No Do you have trouble taking care of your child, family member or friend?: No Do you have trouble with day-to-day activities such as bathing, preparing meals, shopping, managing finances, etc.?: No Are you currently unemployed and looking for a job?: I choose not to answer this question Are you interested in more education?: I choose not to answer this question Please select the resources that you would like help with: None Currently or been in a relationship where the following occur: I choose not to answer THRIVE Score: 0 LAKESHA-7 AMB Questionnaire LAKESHA-7 Date LAKESHA - 7 assessed: 11/07/24 Source: Developed by Drs. Rosalio Evans, Koki Hassan, Jg Guerra and colleagues, with an educational shweta from [employer]. Review of Systems Const Denies chills, Reports fatigue, Denies fever(s), Denies headache(s) and Denies weakness ENT Denies dizziness and Denies headache(s) Card Denies dyspnea Resp Denies cough, Denies dyspnea, Denies wheezing and Denies other (shortness of breath) Musc Denies numbness and Denies tingling Neuro Denies dizziness, Denies headache(s), Denies numbness, Denies tingling and Denies weakness Psych Denies anxiety and Denies depression Endo Reports fatigue Aller/Immun Denies wheezing Physical exam (Primary Care) Vital Signs: Last Vital Signs Temp 98.8 F 01/27/25 15:27 Pulse 71 01/27/25 15:27 Resp 14 01/27/25 15:27 BP 124/64 01/27/25 15:27 Pulse Ox 98 01/27/25 15:27 Oxygen Delivery Method Room Air 01/27/25 15:27 BMI result Body Mass Index 27.9 Tobacco/Smoking Status: Tobacco use Status Tobacco use date assessed 01/15/25 01/27/25 15:28 Patient Tobacco Use Status Never used Tobacco 01/27/25 15:28 e-Cigarette/Vaping Use Never Used 01/27/25 15:28 Thrive Assessment: Date of Thrive Assessment Date Thrive assessed 11/07/24 01/27/25 15:28 Currently or been in a relationship where the following occur: I choose not to answer Const General: well developed; No acute distress Nutritional Appearance: well nourished Orientation/consciousness: patient oriented x3 HENMT Head: Yes normocephalic and Yes atraumatic Eyes General: appearance normal, both eyes and all related structures Pupils: Equal, round and reactive pupils present EOM: EOMs intact bilaterally Resp Effort & Inspection: normal respiratory effort Neuro General: patient oriented x3 and gait normal Cranial nerves: Yes Equal, round and reactive pupils present Psych Affect: normal affect Coding Level of Care Code Est Pt Level 3 (93175) Diagnoses Cough R05.9 Fatigue R53.83 Assessment & Plan Assessment & Plan (1) Cough: Code(s): R05.9 - Cough, unspecified Category: Medical Plan: Chest?x-ray was?normal Cough?resolved?with?prednisone Patient?is?breathing?easily?and?lungs?are?clear?today. Resolved (2) Fatigue: Code(s): R53.83 - Other fatigue Category: Medical Plan: Patient?notes?that?she?has?ongoing?fatigue.??She?did?have?a?prior?pneumonia She?has?had?sleep?studies?which?ruled?out?sleep?apnea She?says?she?wakes?up?mostly?feeling?refreshed?but?does?get?fatigued?during?her?days Will?check?labs?including?CBC?thyroid?levels Encouraged?increasing?exercise?and?plenty?of?sleep. Orders: Orders Complete Blood Count Auto Diff Today R53.83 - Other fatigue, Z00.00 - Encounter for general adult medical examination without abnormal findings Comprehensive Met. Panel Today R53.83 - Other fatigue Free T4 (Free Thyroxine) Today E03.9 - Hypothyroidism, unspecified, R53.83 - Other fatigue Triiodothyronine T3 Total Today E03.9 - Hypothyroidism, unspecified, R53.83 - Other fatigue UA CC w/rflx Micro + Cult Today R53.83 - Other fatigue, Z00.00 - Encounter for general adult medical examination without abnormal findings Thyroid Stimulating Hormone Today E03.9 - Hypothyroidism, unspecified, R53.83 - Other fatigue Microalbumin, Random (w Creat) Today I10 - Essential (primary) hypertension, R53.83 - Other fatigue
== END 2025-01-27 17:04 | disposition home or self-care (01) ==
LOC: HO.HMCFM 15:03
PROVIDERS: PCP Family Medicine; Visit Provider Family Medicine
DX: R05.9 Cough, unspecified (principal); R53.83 Other fatigue

== ENCOUNTER → 2025-01-27 15:02 | Outpatient (BNVA) | payer MEDICARE, SELFPAY | PROVIDERS: PCP Family Medicine; Visit Provider Family Medicine | DX: R05.9 Cough, unspecified (principal); R53.83 Other fatigue; E03.9 Hypothyroidism, unspecified; I10 Essential (primary) hypertension | CPT/HCPCS: 99212 ==

== ENCOUNTER 2025-02-12 09:04 | Outpatient (REF) | payer MEDICARE, SELFPAY ==
[2025-02-12 11:37] LABS: Appearance Urine Clear; Color Urine Yellow; Glucose Urine UA Negative (Negative); Leukocyte Esterase Urine Trace (Negative); Nitrite Urine Negative (Negative); UMIC TRIGGER UACC YES; Urine Blood Negative (Negative); Urine Ketones Negative (Negative); Urine Protein Negative (Neg-Trace)
[2025-02-12 11:46] LABS: MANUAL DIFF FLAG NO
[2025-02-12 11:46] LABS: Bacteria Urine None Seen (None Seen); Hyaline Casts Urine 0-2 /LPF (0-2); RBC Urine 0-2 /HPF (0-2); Squamous Epithelial Cell Urine 0-2 /HPF (0-2); WBC Urine 0-5 /HPF (0-5)
[2025-02-12 11:48] LABS: Basophils Percent Auto 0.5 % (0-2); Eosinophils Absolute Auto 0.1 X10*3/uL (0.0-0.4); Eosinophils Percent Auto 2.9 % (0-4); Hematocrit 41.1 % (37.0-47.0); Hemoglobin 13.2 g/dl (12.0-16.0); Imm Gran Abs Auto 0.02 X10*3/uL (0.00-0.03); Imm Gran Pct Auto 0.5 % (0.0-0.4); Lymphocytes Absolute Auto 1.1 X10*3/uL (1.2-4.9); Lymphocytes Percent Auto 27.3 % (20-40); Mean Corpuscular HGB Conc 32.1 g/dl (31.0-35.0); Mean Corpuscular Hemoglobin 28.3 pg (27.0-33.0); Mean Corpuscular Volume 88.2 fL (80.0-98.0); Mean Platelet Volume 10.5 fL (9.4-12.3); Monocytes Absolute Auto 0.3 X10*3/uL (0.1-1.2); Monocytes Percent Auto 7.7 % (2-11); Neutrophils Absolute Auto 2.5 x10*3/uL (2.0-8.3); Neutrophils Percent Auto 61.1 % (45-73); Platelet Count 241 X10*3/uL (160-400); Red Blood Count 4.66 X10*6/uL (4.20-5.50); Red Cell Distribution Width 13.9 % (11.0-16.0); White Blood Count 4.1 X10*3/uL (4.8-10.8)
[2025-02-12 12:13] LABS: Creatinine Urine 106.47 mg/dL; Microalbumin Urine < 5.0 mg/L
[2025-02-12 12:17] LABS: Alanine Aminotransferase 17 U/L (0-31); Albumin Level 3.9 g/dL (3.5-5.0); Alkaline Phosphatase 77 U/L (39-117); Anion Gap 11 (12-20); Aspartate Amino Transferase 18 U/L (5-31); Bilirubin Total 0.3 mg/dL (0.0-1.0); Blood Urea Nitrogen 15 mg/dL (9-16); Calcium 8.8 mg/dL (8.4-10.2); Carbon Dioxide 25 mmol/L (22-29); Chloride 111 mmol/L (96-108); Estimated Glomerular Filt Rate > 60; Glucose Random 93 mg/dL (60-115); Potassium 4.2 mmol/L (3.3-5.1); Sodium 143 mmol/L (135-145); Total Protein 6.8 g/dL (6.5-8.0)
[2025-02-12 12:23] LABS: Free T4 (Free Thyroxine) 0.83 ng/dL (0.71-1.85); Thyroid Stimulating Hormone 1.97 uIU/mL (0.32-4.0)
[2025-02-13 04:54] LABS: Triiodothyronine T3 Total 92 ng/dL (76-181)
== END 2025-02-12 09:05 | disposition home or self-care (01) ==
LOC: HO.WFDLDS 09:04
PROVIDERS: Visit Provider Family Medicine
DX: Z00.00 Encounter for general adult medical examination without abnormal findings (principal); R53.83 Other fatigue; E03.9 Hypothyroidism, unspecified; I10 Essential (primary) hypertension
CPT/HCPCS: 36415; 80053; 81001; 82043; 82570; 84439; 84443; 84480; 85025

== ENCOUNTER 2025-03-03 15:30 | Outpatient (AMB) | payer MEDICARE, SELFPAY ==
--- NOTE | 2025-03-03 15:40 | A.OFFPC_ITS ---
Vital Signs 03/03/25 15:45 Height 5 ft 2 in Weight 153 lb 4 oz BMI 28.0 BP 106/60 Blood Pressure Location Rt brachial Position Sitting Respiration 14 Pulse 63 Pulse Source Pulse Oximeter Temp 98.2 F Temp Source Oral Pulse Oximetry (%) 96 Oxygen Delivery Method Room Air Intake Visit Reasons: f/u labs Intake Note: patient is scheduled for lab review Assistant Hairstylist Required: No Allergies No Known Allergies [No Known Allergies*] Allergy (Verified 03/03/25 15:43) Medication List - Last Reconciled 03/03/25 by Homer Quintero MD albuterol sulfate 90 mcg/actuation 2 puffs inhalation Q4-6H PRN 30 days atorvastatin 20 mg PO BEDTIME 30 days benzonatate 100 mg PO TID PRN 10 days fluoxetine 10 mg PO DAILY 90 days fluoxetine 80 mg (2 x 40 mg) PO DAILY 90 days fluoxetine 10 mg PO DAILY 90 days fluoxetine 80 mg (2 x 40 mg) PO DAILY 90 days lidocaine 4% 1 patch topical DAILY PRN Tobacco use date assessed: 01/15/25 Dental Screening Dental Screen Date: 01/15/25 HPI f/u labs HPI Details 64 y/o female presents to f/u fatigue, l abs. Had encouraged increasing exercise. Labs drawn 02/12/25. Reviewed labs with pt. Her labs seem fine. She notes she has not been taking her artovastatin. [facility] Medical History (Updated 11/11/24 @ 12:34 by Lanette Noland MD) Depression with anxiety Insomnia Snoring Major depression Surgical History No pertinent past surgical history Social History (Updated 11/07/24 @ 10:50 by Zonia Cee CMA) Housing: Apartment Alcohol intake: current Patient Tobacco Use Status: Never used Tobacco e-Cigarette/Vaping Use: Never Used Second Hand Smoke Exposure: No service: No Current occupational status: employed Current occupational exposures/hazards: No Cognitive needs: No Hearing needs: No Vision needs: No Questionnaire Thrive Questionnaire Date Thrive assessed: 11/07/24 I am a: Patient What is your living situation today?: I have a steady place to live Within the past 12 months, did the food you bought not last and you didn't have the money to get more?: Never true Within the past 12 months, did you worry whether your food would run out before you got money to buy more?: Never true Do you have trouble paying for medicines?: No Do you have trouble getting transportation to medical appointments?: No Do you have trouble paying your heating and electricity bill?: No Do you have trouble taking care of your child, family member or friend?: No Do you have trouble with day-to-day activities such as bathing, preparing meals, shopping, managing finances, etc.?: No Are you currently unemployed and looking for a job?: I choose not to answer this question Are you interested in more education?: I choose not to answer this question Please select the resources that you would like help with: None Currently or been in a relationship where the following occur: I choose not to answer THRIVE Score: 0 LAKESHA-7 AMB Questionnaire LAKESHA-7 Date LAKESHA - 7 assessed: 11/07/24 Source: Developed by Drs. Rosalio Evans, Koki Hassan, Jg Guerra and colleagues, with an educational shweta from [employer]. Physical exam (Primary Care) Vital Signs: Last Vital Signs Temp 98.2 F 03/03/25 15:45 Pulse 63 03/03/25 15:45 Resp 14 03/03/25 15:45 BP 106/60 03/03/25 15:45 Pulse Ox 96 03/03/25 15:45 Oxygen Delivery Method Room Air 03/03/25 15:45 BMI result Body Mass Index 28.0 Tobacco/Smoking Status: Tobacco use Status Tobacco use date assessed 01/15/25 03/03/25 15:41 Patient Tobacco Use Status Never used Tobacco 03/03/25 15:41 e-Cigarette/Vaping Use Never Used 03/03/25 15:41 Thrive Assessment: Date of Thrive Assessment Date Thrive assessed 11/07/24 03/03/25 15:41 Currently or been in a relationship where the following occur: I choose not to answer Coding Level of Care Code Est Pt Level 3 (81244) Diagnoses Fatigue R53.83 Hypercholesterolemia E78.00 Assessment & Plan Assessment & Plan (1) Fatigue: Code(s): R53.83 - Other fatigue Category: Medical Plan: Following?up?on?fatigue Patient?had?gotten?over?a?pneumonia?in?prior?to?this?was?having?a?lot?of?stress? at?her?work. She?has?had?workup?for?sleep?apnea?in?the?past?which?was?negative Advised?her?to?work?on?getting?plenty?of?sleep?and?start?exercising Lab?work?was?unremarkable?including?CBC,?electrolytes,?thyroid?level - no?underlying?cause?for?fatigue?was?found Patient?notes ?that?fatigue?has?been?improving?and?this?is?likely?secondary?to?improving?her?e xercise?and due?to?time?since?her?pneumonia?as?she?has?been?recovering. Also?less?stress?as?she?is?no?longer Working?1?of?her?jobs. Should?continue?to?improve (2) Hypercholesterolemia: Code(s): E78.00 - Pure hypercholesterolemia, unspecified Category: Medical Plan: LDL?cholesterol?had?been?in?170s?and?atorvastatin?20?mg?daily?had?brought?this?d own?to?111. She?stopp ed?taking?medication,?she?thought?it?might?be?causing?some?adverse?effects She?will?try?to?resume?this?I?starting?with?1/2?tab?daily She?will?let?me?know?if?she?is?unable?to?tolerate it Orders: Orders Lipid Panel Today Z00.00 - Encounter for general adult medical examination without abnormal findings TSH reflex Free T4 Today Z00.00 - Encounter for general adult medical examination without abnormal findings UA CC w/rflx Micro + Cult Today Z00.00 - Encounter for general adult medical examination without abnormal findings Comprehensive [place]. Panel Fast Today Z00.00 - Encounter for general adult medical examination without abnormal findings Complete Blood Count Auto Diff Today Z00.00 - Encounter for general adult medical examination without abnormal findings Microalbumin, Random (w Creat) Today I10 - Essential (primary) hypertension Medications: Refilled lidocaine 4% 1 patch topical DAILY PRN 30 ea 11RF pain atorvastatin 20 mg PO BEDTIME 30 days 30 tabs 0RF
[2025-03-03 15:45] VITALS: BP 106/60; PULSE 63; RESP 14; TEMP 36.8; O2SAT 96; BMI 28.0
== END 2025-03-03 16:08 | disposition home or self-care (01) ==
LOC: HO.HMCFM 15:31
PROVIDERS: PCP Family Medicine; Visit Provider Family Medicine
DX: R53.83 Other fatigue (principal); E78.00 Pure hypercholesterolemia, unspecified

== ENCOUNTER → 2025-03-03 15:30 | Outpatient (BNVA) | payer MEDICARE, SELFPAY | PROVIDERS: PCP Family Medicine; Visit Provider Family Medicine | DX: I10 Essential (primary) hypertension (principal); R53.83 Other fatigue; E78.00 Pure hypercholesterolemia, unspecified | CPT/HCPCS: 99212 ==

== ENCOUNTER → 2025-09-19 08:00 | Outpatient (BNV) | payer MEDICARE, SELFPAY | PROVIDERS: PCP Family Medicine; Visit Provider Internal Medicine | DX: Z12.31 Encounter for screening mammogram for malignant neoplasm of breast (principal) | CPT/HCPCS: 77063; 77067 ==

== ENCOUNTER 2025-09-19 08:01 | Outpatient (REF) | payer MEDICARE, SELFPAY ==
--- OUTSIDE RECORDS SUMMARY | 2020-11-28 09:33 | XMS_ITS | Encounter Summary ---
Author Organization [facility] Address [address] [place] [id number] Phone Care Team Providers Care Television Engineering Teacher Name Role Phone Pcp, Unknown Primary Care Provider Unavailabl e Encounter Details Date Type Department Care Team (Late st Contact Info) Description 11/28/2020 9:33 AM EST Hospital Encounter [facility] [address] [place] [id number] Livia Castro PA [address] [id number] [email or web address] Social History Tobacco Use Types Packs/Day Years Used Date Smoking Tobacco: Never Smokeless Tobacco: Never Alcohol Use Standard Drinks/Week Comments Yes 0 (1 standard drink = 0.6 oz pur e alcohol) social Education Answer Date Recorded Are you interested in more education? Not on alec e 01/26/2023 Are you concerned about learning? Not on file 01/26/2023 No 01/26/2023 No 01/26/2023 Digital Access Answer Date Recorded No 02/24/2023 No 02/24/2023 Reliable internet access at home? Not on file 02/24/2023 Device with a working camera? Not on file Intimate Partner Violence Answer Date R ecorded Are you denied basic needs s uch as food, clothing, or medical care? No 04/01/2024 In the past 12 months have y ou been in a relationship with a person who hurts, threatens, or tries to control you? No 04/01/2024 Are you denied basic needs s uch as food, clothing, or medical care? No 04/01/2024 In the past 12 months have y ou been in a relationship with a person who hurts, threatens, or tries to control you? No 04/01/2024 Comments No Sex and Gender Information Value Date Recorded Sex Assigned at Female 04/01/2024 5:27 PM EDT Legal Sex Female 10:35 PM EDT Gender Identity Female 04/01/2024 5:27 PM EDT Sexual Orientation Not on file documented as of this encounter Plan of Treatment Not on file documented as of this encounter Procedures Procedure Name Priority Date/Time Associated Diagnosis Comments XR FINGER 2 OR MORE VIEWS (RIGHT) Urgent/patient waiting 11/28/2020 9:45 AM EST Injury of right ring finger, initial encounter documented in this encounter Results * XR FINGER 2 OR MORE VIEWS (RIGHT) (11/28/2020 9:45 AM EST) Anatomical Region Laterality Modality Hand Right Computed Radiogr aphy 11/28/2020 10:0 0 AM EST Addenda Addendum by Leela Felix MD on 11/28/2020 12:33 PM EST ADDENDUM: Addendum was created to correct the typographical error as below. A soft tissue swelling around the proximal interphalangeal joint of FOURTH finger. End of addendum. Impressions 11/28/2020 10:21 AM EST No acute fracture or dislocation. A soft tissue swelling around the proximal interphalangeal joint of third finger. ATTESTATION: I, Leela Felix as teaching physician, have reviewed the images for this case and if necessary edited the report originally created by Yehuda Hillman. Narrative 11/28/2020 10:21 AM EST Reason for exam (per EHR order): Trauma: fall from <3 ft (<5 stairs); bruising/swelling, tender over PIP joint TECHNIQUE: Two radiographs of the right long (3rd) finger. COMPARISON: None. FINDINGS: No acute fracture or dislocation. Alignment is maintained. Cartilage spaces are maintained. A soft tissue swelling noted around the proximal interphalangeal joint. Procedure Note Leela Felix MD - 11/28/2020 Reason for exam (per EHR order): Trauma: fall from <3 ft (<5 stairs);bruising/swelling, tender over PIP joint TECHNIQUE: Two radiographs of the right long (3rd) finger. COMPARISON: None. FINDINGS: No acute fracture or dislocation. Alignment is maintained. Cartilagespaces are maintained. A soft tissue swelling noted around the proximalinterphalangeal joint. IMPRESSION: No acute fracture or dislocation. A soft tissue swelling around the proximal interphalangeal joint of thirdfinger. ATTESTATION: I, Leela Felix as teaching physician, have reviewed theimages for this case and if necessary edited the report originally createdby Yehuda Hillman. Livia HARTLEY IMG XR UPPER EXTREMITY Edite d Result - Final documented in this encounter Visit Diagnoses Not on filedocumented in this encounter Care Teams Television Engineering Teacher Relationship Specialty Start Date End Date Pcp, Unknown PCP - General 11/28/20 04/16/24 documented as of this encounter Additional Source Comments The information contained in this document represents components of the legal health record. It is not the complete legal health record.[facility]
--- NOTE | ~2025-09-19 | MM_ITS ---
EXAMINATION: MM SCREENING DIGITAL BREAST TOMOSYNTHESIS, BILATERAL CLINICAL INFORMATION: Screening. Asymptomatic. COMPARISON: Mammography: Comparison is made with available priors TECHNIQUE: Digital breast mammography with tomosynthesis is performed in both the craniocaudal and mediolateral oblique views along with computer-aided detection (CAD). FINDINGS: There are scattered areas of fibroglandular density. There are no significant masses, abnormal calcifications, or other abnormalities. MM/MM tomosynthesis screening BI IMPRESSION: No mammographic evidence of malignancy. ASSESSMENT: BI-RADS Category 1: Negative RECOMMENDATION: Routine annual mammography screening. 1 year F/U This examination should not preclude the clinical evaluation of a suspicious palpable abnormality. This patient's information was entered into a reminder system with a target due date for their next mammogram. Electronically signed by: Jayshree Ramos DO 09/22/2025 05:58 PM [facility]
--- OUTSIDE RECORDS SUMMARY | 2025-09-19 08:03 | XMS_ITS | Encounter Summary ---
Author Organization [facility] Address [address] [facility] [address] [place] [id number] Phone Care Team Providers Care Pier Worker Name Role Phone Homer Quintero MD Primary Care Provider Encounter Details Date Type Department Care Team (Late st Contact Info) Description 04/17/2024 Ancillary Orders [address] [id number] Kameron Alberto PA-C [address] [place] [address] Orthopedics & Sports Medicine, [place], [place] [id number] [email or web address] Left wrist pain (Primary Dx) Social History Tobacco Use Types Packs/Day Years [...] on file documented as of this encounter Results * XR WRIST 2 VIEWS (LEFT) (04/17/2024 10:19 AM EDT) Narrative SYSTEMGENERATED, DOCUMENTATION - 04/17/2024 10:19 AM EDT This image report has been auto-finalized and has not been read by a Radiologist. Interpretation has been included in the provider encounter note for this date of service. Kameron Alberto PA-C IMG XR UPPER EXTREMITY Final Result documented in this encounter Visit Diagnoses Diagnosis Left wrist pain- Primary Pain in joint, forearm Left wrist pain Pain in joint, forearm documented in this encounter Care Teams Pier Worker Relationship Specialty Start Date End Date Homer Quintero MD PCP - General Family Medicine 04/17/24 documented as of this encounter Additional Source Comments The information contained in this document represents components of the legal health record. It is not the complete legal health record.[facility]
--- OUTSIDE RECORDS SUMMARY | 2025-09-19 08:03 | XMS_ITS | Clinical Summary ---
Author Organization [facility] Address [address] [facility] [address] [place] [id number] Phone Care Team Providers Care Career Coach Name Role Phone Homer Quintero MD Primary Care Provider Allergies No known active allergies Medications FLUoxetine (PROZAC) 40 MG capsule TAKE 1 CAPSULE BY MOUTH TWICE DAILY TOTAL 90 MG PER DAY 03/02/2020 Active FLUoxetine (PROZAC) 10 MG capsule TAKE 1 CAPSULE BY MOUTH ONCE DAILY TOTAL 90 MG PER DAY 03/02/2020 Active Active Problems No known active problems Immunizations Immunization Administration Dates Next Due COVID-19 (Pre-07/23) Pfizer Vaccine, mRNA, PF ,10/26/2020 Influenza Quadrivalent MDCK w/Preservative IM Influenza Quadrivalent Preservative Free IM 05/2019 Family History Medical History Relation Comments Coronary artery disease Father Ovarian cancer Sister Relation Status Comments Brother Alive Father Alive Mother Alive Sister Alive Social History Tobacco Use Types Packs/Day Years [...] PM EDT Sexual Orientation Not on file Last Filed Vital Signs Vital Sign Reading Time Taken Comments Blood Pressure 119/72 04/01/2024 10:40 PM EDT Pulse 62 04/01/2024 10:40 PM EDT Temperature 36.8 C (98.2 F) 04/01/2024 10:40 PM EDT Respiratory Rate 18 04/01/2024 10:40 PM EDT Oxygen Saturation 99% 04/01/2024 10:40 PM EDT Inhaled Oxygen Concentration - - Weight 67.6 kg (149 lb) 04/01/2024 5:22 PM EDT Height 157.5 cm (5' 2 ) 04/01/2024 5:22 PM EDT Body Mass Index 27.25 04/01/2024 5:22 PM EDT Plan of Treatment Health Maintenance Due Date Last Done Comments Adult Td,Tdap Booster 1958 LIPID PANEL 1958 DEPRESSION SCREENING 1970 HEPATITIS C SCREENING 1976 MAMMOGRAM 1998 COLOGUARD 2003 COLONOSCOPY 2003 COLORECTAL CANCER SCREENING 2003 FIT TEST 2003 FOBT 2003 SIGMOIDOSCOPY 2003 VIRTUAL COLONOSCOPY 2003 PNEUMOCOCCAL VACCINES (50+ years) (1 of 1 - PCV) 2008 ZOSTER VACCINES (1 of 2) 2008 SCREENING FOR DIABETES 03/22/2023 03/22/2020 OSTEOPOROSIS SCREENING INITIAL (ONE-TIME) 2023 INFLUENZA VACCINE (#1) 2025 3, 07/31/2021, 06/24/2020, Additional history exists COVID-19 VACCINE ( - 2024- season) 2025 09/28/2021, 11/16/2020, 10/26/2020 RSV VACCINE (1 - 1-dose 75+ series) 2033 SMOKING STATUS SCREENING (Once After 26 Yrs) Completed 11/28/2020 HEPATITIS A VACCINES Aged Out No long er eligible based on patient's age to complete this topic HIB VACCINES Aged Out No longer eligi ble based on patient's age to complete this topic MENINGOCOCCAL VACCINES (ACWY) Aged Out No longer eligible based on patient's age to complete this topic MENINGOCOCCAL VACCINES (B) Aged Out N o longer eligible based on patient's age to complete this topic Medical Devices Not on file Care Teams Career Coach Relationship Specialty Start Date End Date Homer Quintero MD PCP - General Family Medicine 04/17/24 Additional Source Comments The information contained in this document represents components of the legal health record. It is not the complete legal health record.[facility]
== END 2025-09-19 08:02 | disposition home or self-care (01) ==
LOC: HO.MAMMO 08:01
PROVIDERS: PCP Family Medicine; Visit Provider Family Medicine
DX: Z12.31 Encounter for screening mammogram for malignant neoplasm of breast (principal)
CPT/HCPCS: 77063; 77067